=== PATIENT | female | born 1945 | race Caucasian/White ===

== ENCOUNTER 2016-08-21 06:49 | Inpatient (IN) | payer MEDICARE, MEDICAID ==
[2016-08-21] VITALS (19 sets, daily range): BP systolic 122–224; BP diastolic 50–102; PULSE 80–132; RESP 16–37; O2SAT 88–100
[~2016-08-21] VITALS: Ht 152.4 cm; Wt 48.7 kg
--- NOTE | 2016-08-21 06:58 | ED.REPORT ---
HPI-Dyspnea / Wheezing Date of Service Aug 21, 2016 ED Provider: Dr. Duncan Pt is a 72 year old Singaporean speaking female with a hx of kidney problems on dialysis presenting to the ED via EMS complaining of SOB onset last night. Associated symptoms include vomiting throughout the night last night. Denies chest pain, cough, fever, or any other symptoms at this time. The pt's was driving her to the hospital when he pulled off the road several times and was stopped by law enforcement and EMS were called due to severe respiratory distress. Medics report SATs in the 80s, and that the pt was hypertensive and diaphoretic in the field. Pt was taken by ambulance for a checkup on Tuesday. Her last dialysis was on , and gets dialysis on Tuesdays and only. Her denies any previous history of heart attack or previous similar symptoms. Her reports that about 4 years ago she had cholelithiasis with surgery, and then an infection intermittent for 2 years which he reports affected her kidneys. A Singaporean portable representative personal service was used to communicate with the patient and her . Pt is on Bactrim and Flagyl but is not sure what for. Nursing Notes Stated Complaint: RESPIRATORY DISTRESS Chief Complaint: Respiratory distress Nursing Notes Reviewed: Yes Scheduled Amlodipine (Amlodipine) 10 Mg Tablet 10 MG PO DAILY Calcium Acetate (Calcium Acetate) 667 Mg Capsule 667 MG PO QID with food Carvedilol (Carvedilol) 25 Mg Tablet 25 MG PO DAILY Hydralazine (Hydralazine) 100 Mg Tablet 100 MG PO BIDWM Metronidazole (Metronidazole) 500 Mg Tablet 500 MG PO QID Olmesartan (Benicar) 40 Mg Tablet 40 MG PO DAILY Omeprazole (Omeprazole) 20 Mg Capsule.dr 20 MG PO DAILY Sulfamethoxazole/Trimeth 400-80 mg (Bactrim) 1 Each Tablet 1 TABLET PO BID Scheduled PRN Clonidine (Clonidine) 0.2 Mg Tablet 0.2 MG PO BID PRN PRN for BP >170/100 Tramadol (Tramadol) 50 Mg Tablet 50 MG PO Q8 PRN PRN For Pain General Time Seen by MD: 06:57 Chief Complaint Shortness of breath Hx Obtained From: Patient, EMS Arrived By: Ambulance Caused by: Spontaneous Sudden in Onset?: Yes Onset Occurred: Just prior to arrival Symptom Duration: Since onset Severity: Current: No pain currently Severity: Maximum: No pain Recent Healthcare: No recent hospitalization, Recent doctor visit Similar Sx Previous: No Past Medical History Past Medical History Kidney problems on dialysis Past Surgical History Cholelithiasis with surgery and following infection Smoking History Unknown if Ever Smoker Social History Other Social History: Ambulatory Status Independent Review of Systems Constitutional: Denies: Fever Respiratory: Reports: Shortness of breath, Wheezing, Denies: Non-productive cough Cardiovascular: Denies: Chest pain Complete sys rev & neg: except as marked. GI: Reports: Nausea, Vomiting Physical Exam Initial Vital Signs Vital Signs (First) Date Time Temp Pulse Resp B/P Pulse Ox O2 Delivery O2 Flow Rate FiO2 08/21/16 07:15 132 33 212/102 98 BiPAP 08/21/16 07:15 35.7 08/21/16 07:29 70 Initial VS: Reviewed Head / Eyes: Atraumatic, Normocephalic, PERRL ENT: Mucous membranes moist, Conjunctiva normal, No scleral icterus Abdomen / GI: Soft, Non-tender, No guarding, No rebound, No distention Extremities: Vascular intact, Neuro intact, No swelling, No tenderness Skin: Warm, Dry, No cyanosis Neurologic: Alert, Oriented, Nonfocal Psychiatric: Mood/affect normal, Behavior normal, Normal thought content General/Constitutional: Awake, Alert Sitting forward. Respiratory / Chest: Atraumatic Resp Distress / Stridor: Positive: Resp distress severe Bilateral crackles and wheezes. Cardiovascular: Heart rate NL, Regular rhythm, Heart sounds NL Interpretation & Diagnostics Lab Results Interpretation Result Diagram: 08/21/16 0727 08/21/16 0727 Test 08/21/16 07:27 White Blood Count 12.8th/mm3 (3.8-10.1) Red Blood Count 4.40mil/mm3 (3.90-5.20) Hemoglobin 11.9g/dL (12.0-15.6) Hematocrit 38.4% (35.0-46.0) Mean Corpuscular Volume 87.3fL (81-100) Mean Corpuscular Hemoglobin 27.0pg (27.0-35.0) Mean Corpuscular Hemoglobin Concent 31.0% (32.0-37.0) Red Cell Distribution Width 17.1% (12.3-15.4) Platelet Count 233bil/L (150-400) Neutrophils (%) (Auto) 71.8% (40-74) Lymphocytes (%) (Auto) 19.4% (14-46) Monocytes (%) (Auto) 7.3% (4-12) Eosinophils (%) (Auto) 0.5% (0-5) Basophils (%) (Auto) 0.6% (0-3) Prothrombin Time 12.2sec (8.1-12.5) Prothromb Time International Ratio 1.14ratio D-Dimer 1.68mg/L FEU (<0.50) Sodium Level 129mEq/L (134-144) Potassium Level 4.8mEq/L (3.5-5.2) Chloride Level 85mEq/L (97-108) Carbon Dioxide Level 24mmol/L (18-29) Blood Urea Nitrogen 30mg/dL (8-27) Creatinine 5.08mg/dL (0.57-1.00) Estimat Glomerular Filtration Rate 12mL/min (>59) Glucose Level 214mg/dL (60-99) Calcium Level 9.7mg/dL (8.5-10.1) Magnesium Level 2.1mg/dL (1.6-2.6) Total Bilirubin 0.4mg/dL (0.0-1.2) Aspartate Amino Transf (AST/SGOT) 44U/L (0-50) Alanine Aminotransferase (ALT/SGPT) 16U/L (0-32) Alkaline Phosphatase 70U/L (25-165) Troponin T 0.047ug/L (0.0-0.011) Pro-B-Type Natriuretic Peptide > 21967gp/mL (0-301) Total Protein 7.9g/dL (6.4-8.4) Albumin 3.8g/dL (3.4-5.0) Procalcitonin 0.41ng/mL (0.00-0.08) ECG Interpretation ECG Interpretation: Sinus tachycardia with a rate of 133. Q waves in v1-v4. No ST elevations. Time: 07:02 Interpreted by: ED physician X-Ray Chest Interpretation Chest Xray Interpretation: Signs consistent with pulmonary edema volume overload left pleural effusion View: Portable, 1 view Interpretation / Wet Read by: Wet read ED physician Re-Eval/Medical Decision Med Decision/Clinical Course 71-year-old female poor historian with limited medical history available, Singaporean speaking, presenting as Evita Cortes with shortness of breath since last night. Also with some nausea and vomiting. Patient is a dialysis patient in [place] on Tuesdays and . She does report going to hospital for unknown reason multiple times recently with no recent admissions. Comes in in severe respiratory distress. He was immediately placed on BiPAP and this improved her respiratory status stress significantly she was much more comfortable. Chest x-ray emergently showed severe volume overloaded and left pleural effusion. She is afebrile here. I consulted nephrology emergently and they requested transfer to the ICU for emergent dialysis. Did not have labs back at this time. He was notably hypertensive and tachycardic in the 130s. EKG with Q waves in V1 through V4. No STEMI. She denied chest pain. She was given an aspirin prior to getting history from representative personal service. She is severely hypertensive pending urgent dialysis. Discussed with ICU Dr. Foy who accepted admission pending labs and we decided to hold off on antibiotics pending labs given afebrile. Cannot rule out aspiration pneumonia. We will defer to ICU team. Re-Evaluation/Progress #1: Time of Eval: 07:03 Patient Status: Condition improved Re-Evaluation/Progress Note: Pt breathing improved with BiPAP. Re-Evaluation/Progress #2: Time of Eval: 07:07 Patient Status: Condition improved Re-Evaluation/Progress Note: Used the portable representative personal service to speak to the pt and her . Re-Evaluation/Progress #3: Time of Eval: 07:30 Patient Status: Condition improved Re-Evaluation/Progress Note: Discussed plan for admission. Pt understands and agrees with plan. Consultation #1: Referral / Consult Name: Joaquim Singh MD Consulted With: Nephrology Call Returned at: 07:08 Note: Admit the pt and dialyze for volume overload. Consultation #2: Referral / Consult Name: Yaya Foy MD Consulted With: Hospitalist Call Returned at: 07:23 Product Manufacturing Professional: Will see patient, Agrees with plan, Accepts admit Counseled Regarding: Diagnosis, Lab results, Need for follow-up, When/why to return to ED Discharge & Departure Impression: Primary Impression: Signs and symptoms of severe respiratory distress Additional Impressions: Dialysis patient Hypertensive emergency Disposition: ADMITTED TO HOSPITAL Discharge Condition All VS Reviewed: Yes Condition: Improved Crit Care Except Billable Proc Time Spent: 30-74 minutes (40 minutes) Services Performed: Patient management by me, Time spent at bedside, Reviewing test results, Reviewing imaging, Discussing patient care, Documentation in record, Time with fam/surrogate Scribe Attestation Portions of this note were transcribed by Ciarra Mitchell. I, Dr. Duncan personally performed the history, physical exam and medical decision-making; I reviewed and confirmed the accuracy of the information in the transcribed note. Signed by: Silver Armas, 08/21/2016 at 0744. Medhat Duncan MD Aug 21, 2016 06:58 CIARRA MITCHELL Aug 21, 2016 07:06
[2016-08-21] MEDS ORDERED: Albuterol-Ipratropium 3 mL Inhalation Solution NEB ONE (07:00)
[2016-08-21] MEDS ORDERED: Ondansetron 2 mg/mL 2 mL Inj IVPUSH PRN ×2 (07:30→07:35)
[2016-08-21] MEDS ORDERED: Alum-Mag Hydrox-Simeth 30 mL Suspension PO PRN ×2 (07:30→07:35)
[2016-08-21 07:32] LABS: BASOPHILS % (AUTO) 0.6 % (0-3); EOSINOPHILS % (AUTO) 0.5 % (0-5); MONOCYTES % (AUTO) 7.3 % (4-12); Mean Corpuscular Volume 87.3 fL (81-100); NEUTROPHILS % (AUTO) 71.8 % (40-74); Platelet Count 233 bil/L (150-400)
[2016-08-21] MEDS ORDERED: Polyethylene Glycol (PEG) 17 Gm Powder PO PRN (07:35)
[2016-08-21] MEDS ORDERED: Senna-Docusate 8.6-50 mg Tablet PO PRN (07:35)
[2016-08-21 07:50] LABS: D-Dimer 1.68 mg/L FEU (<0.50); INR 1.14 ratio
--- NOTE | 2016-08-21 08:01 | NUR ---
Arrival to CCU Patient escorted from ED to room 2011. Alert at time of arrival to unit. Non-Hungarian speaking, awaiting aircraft engine technician to assist with pt communication needs. ST per bus driver/monitor. Hypertensive. Tachypneic. BiPAP with 60% fi02. Sp02 >92%. Right upper abdominal pain/guarding noted. No s/s of chest discomfort. at bedside. Will continue to monitor.
[2016-08-21 08:26] LABS: Magnesium 2.1 mg/dL (1.6-2.6); TROPONIN T 0.047 ug/L (0.0-0.011)
[2016-08-21] MEDS: Sodium Chloride LOK Flush 10 mL Syringe IVFLUSH SCH ×3 (08:30→23:16)
--- NOTE | 2016-08-21 09:00 | NUR ---
Admit/med rec Per spouse, pt. being dialyzed , , Tuesday; at [facility]. Full code, discussed code status with Daughter, Rebeka. Rebeka stating that she will call all family members and discuss the possibility in status change; due to pt. progressively getting worse, and condition becoming chronic. She states that "I would like for the medical staff to talk to me directly concerning plan of care and status, Father does not understand the whole process." Med rec completed; med containers to be taken home by spouse.
[2016-08-21] MEDS ORDERED: TRAM50TA2 PO (09:41)
[2016-08-21] MEDS ORDERED: CALC667C9 PO (09:41)
[2016-08-21] MEDS ORDERED: METR500T19 PO (09:41)
[2016-08-21] MEDS ORDERED: CARV25TA2 PO (09:41)
[2016-08-21] MEDS ORDERED: AMLO10TA3 PO (09:41)
[2016-08-21] MEDS ORDERED: SULF-239 PO (09:41)
[2016-08-21] MEDS ORDERED: OMEP20CA11 PO (09:41)
[2016-08-21] MEDS ORDERED: OLME40TA3 PO (09:41)
[2016-08-21] MEDS ORDERED: HYDR100T27 PO (09:41)
[2016-08-21] MEDS ORDERED: CLON0.2T PO (09:41)
[2016-08-21] MEDS: Heparin 5,000 Unit/mL Inj SUBQ SCH ×2 (09:56→21:53)
--- NOTE | 2016-08-21 11:27 | DRSVH ---
PROCEDURE: X-RAY CHEST ONE VIEW, PORTABLE ([id number]) INDICATIONS: dyspnea TECHNIQUE: One view of the chest was acquired. COMPARISON: None. FINDINGS: Surgical changes and devices: None. Lungs and pleura: Evaluation of the right lung apex and medial left apex is limited due to patient's neck soft tissues as well as an external nonrebreather mask. There is a small left and likely small r ight pleural effusion. Diffuse pulmonary edema is present as well as patchy opacities in the lung ba ses and left basilar consolidation. Mediastinum: The mediastinal contours are partially obscured. Heart size likely within normal limits . Bones and chest wall: No suspicious bony lesions. Overlying soft tissues appear unremarkable. IMPRESSION: 1. Limited study demonstrates bilateral pleural effusions with pulmonary edema and bibasilar consoli dation which may reflect pneumonia or atelectasis. Dictated by: Minesh Carver M.D. on 08/21/2016 at 11:18 Approved by: Minesh Carver M.D. on 08/21/2016 at 11:20
--- NOTE | 2016-08-21 12:48 | NUR ---
Dialysis note 3.5 hr HD tx 4000ml net UF removed. 2 15 g needles to VANESSA fistula QB 300 See DTR for complete vitals trends. Pt on BIPAP/stable during tx/resting comfortably Sureseals/clamps X10 mins post tx
[2016-08-21] MEDS ORDERED: Heparin 5,000 Unit/mL Inj SUBQ ONE (13:15)
--- NOTE | 2016-08-21 13:28 | CONS ---
[address] [address] CONSULTATION REPORT PATIENT: AKASH WILKS : 1945 MR#: [id number] ADMIT: 08/21/2016 JOB ID: [id number] DATE OF SERVICE: 08/21/2016 NEPHROLOGY CONSULTATION: REQUESTING PHYSICIAN: Dr. Alexi Foy. REASON FOR CONSULTATION: Management of end-stage renal disease. CHIEF COMPLAINT: Shortness of breath. PRESENT ILLNESS: This is a 72-year-old Bulgarian speaking lady with significant past medical history of end-stage renal disease and hypertension who presented to the emergency department with a complaint of shortness of breath. The patient does not speak Vincentian. Her granddaughter is kind enough to be our case management assistant. The patient reported that she had abdominal pain and went to the emergency department at the [facility] on Tuesday, August 16. She was told that she had diverticulitis and was prescribed Flagyl and Bactrim. She was not hospitalized at that time. She stated that she has been drinking more water while taking her antibiotics. She came to the hospital this time with a complaint of sudden onset chest pressure and shortness of breath at 2 o'clock this morning. Her was driving her to the hospital. Her pulled off the road several times and eventually was stopped by the law enforcement. EMS was then called given her unstable respiratory condition. En route her pulse ox was in the 80s. Her initial vitals were 35.7, pulse 131, blood pressure of 224/97. Her pulse ox was 88% on non-rebreather and then switched to BiPAP. During my visit, she is on FiO2 50%, BiPAP with a pulse ox of 100%. I called hemodialysis nurse for a stat hemodialysis. During my visit, she is already on hemodialysis. We have set ultrafiltration for 4 L today. She reported that she had felt slightly better since the dialysis started. She reports no history of fever or chills. He is a little bit nauseated but no diarrhea, no vomiting. She is the patient of Dr. Clifford. She goes to dialysis unit at [facility]. She is being dialyzed every Tuesday, , Tuesday via AV fistula on the left arm. PAST MEDICAL HISTORY: 1. End-stage renal disease, on hemodialysis every Tuesday, , Tuesday. 2. Hypertension. 3. Renal osteodystrophy. SURGICAL HISTORY: 1. Status post cholecystectomy. 2. Status post appendectomy. 3. Status post AV fistula creation. SOCIAL HISTORY: She is . Denies current use of alcohol, tobacco or illicit drugs. ALLERGIES: REVIEW OF SYSTEMS: Fourteen point review of system was performed. PHYSICAL EXAMINATION: Vitals: Temperature 36.5, pulse 88, respiratory 20, blood pressure 122/61, after dialysis. O2 sat 100% on FiO2 50%, with BiPAP. General appearance: Awake, alert, oriented x3. In mild distress on BiPAP. Follows simple commands. HEENT: No pallor. No jaundice. Positive for JVD. No lymphadenopathy. No thyroid enlargement. Heart: Regular rate and rhythm. Normal S1, S2. No murmurs, rubs or gallops. Lungs: Equal breath sounds bilaterally. No wheezing. No rhonchi. Decreased breath sound at the bases. Abdomen: Soft, nontender, nondistended. No hepatosplenomegaly. No rebound. No guarding. No rigidity. Extremities: No significant edema on the lower extremities. Left AV fistula with good thrill and bruit. LABORATORY: Sodium 129, potassium 4.8, chloride 85, bicarbonate 24, BUN 30, creatinine 5.08. Hemoglobin 11.9, WBC 12.8, platelets 233. IMAGING: Chest x-ray showed bilateral pleural effusion and pulmonary edema pattern. ASSESSMENT: 1. Sudden onset shortness of breath secondary to pulmonary edema. 2. End-stage renal disease with fluid overload. 3. Hypertension, uncontrolled, likely volume related. 4. Renal osteodystrophy. 5. Recent history of diverticulitis. Per renal standpoint, today we are planning to perform dialysis 3.5 hours and remove 4 L total fluid. We will use 2 K bath today. We will repeat a chest x-ray in the morning and likely patient will receive another extra dialysis tomorrow for two hours and fluid removal probably 2 L. The rest of management as per primary team. I would recommend to resume her home antihypertensive medications. Thank you for allowing me to participate in the care of your patient. We will monitor along with you. JOSÉ MIGUEL
--- NOTE | 2016-08-21 14:05 | NUR ---
STATUS Patient resting comfortably. Family interpreting for pt. Intermittent complaints right upper abdominal pain, denies need for pain medication at this time. No reported nausea. SR per sales and leasing consultant. Hypertensive, home antihypertensive medications reordered and administered as scheduled. Denies chest discomfort. Respirations unlabored and even. No reported SOA. Sp02 >92% on 3L per oxymask. Small formed stool x 1. Family remains at bedside. Will continue to monitor.
--- NOTE | 2016-08-21 17:07 | PCM.HPMED ---
Subjective Date of Service Aug 21, 2016 Primary Provider: Admitting Physician: Yaya Foy MD Primary Care Physician: Jessica Attending Physician: Joaquim Singh MD Chief Complaint: Difficulty breathing History of Present Illness: Belle Kevin is a 72-year-old Italian speaking woman with past medical history significant for end-stage renal disease on hemodialysis Tuesday and Tuesday, hypertension, diabetes, anemia, hyperlipidemia, hypothyroidism presented to [facility] emergency department due to severe shortness of breath and respiratory distress. The patient does not speak any Greek and our conversation was translated by a Italian speaking RN. An attempt was made to use a telephone transmitter however no Italian brick and tile making machine operator was available. The patient lives in in the [facility] and was seen at the [place] emergency department at [facility] on Tuesday for diverticulitis and was grabbed Bactrim and metronidazole. The patient was also seen in the emergency department 4 months prior at that time a CT was performed which revealed ascites, pericardial and bilateral pulmonary effusions. Per patient's family report, the patient has been drinking a lot more water while taking her antibiotics. This morning around 2 AM the patient woke up with severe shortness of breath and chest pressure. Her was driving her to the hospital and was stopped by law enforcement due to frequent stops at the site of the road. EMS was subsequently called and she was brought to the nearest hospital. She denies any overt chest pain or pressure at this time. She notes some shortness of breath but this has improved with BiPAP use. She denies any nausea, vomiting, diarrhea. She does note mild abdominal pain which is significantly improved from Tuesday. Per the patient's the patient has not missed any dialysis appointments and she is normally dialyzed 1.2 L at [facility]. She denies any cough, fevers, chills, changes in mentation. She has noticed that she has lower extremity edema that has worsened over the last several days. There is no history of heart failure. Her vital signs in the emergency department were significant for tachycardia, tachypnea, elevated blood pressure and hypoxia. She was given 1 full dose of aspirin. Dr. Serrano the nephrology service was consulted by the ED physician for emergent dialysis. Review of Systems: A comprehensive review systems was performed and is negative except as noted above in history of present illness. Allergies Coded Allergies: acetaminophen (Verified Allergy, Unknown, 08/21/16) hydrocodone (Verified Allergy, Unknown, 08/21/16) Home Medications [place] 10 mg once a day Calcitrol 0.2 mcg once a day Calcium carbonate Calcium acetate Carvedilol 12.5 mg twice a day Vitamin D3 Clonidine 0.1 mg every day Furosemide 20 mg every day Hydralazine 25 mg twice a day Start 25 mg once a day next line lovastatin 40 mg once a day CellCept 2 mg every 48 hours Benicar 40 mg every day Prilosec 20 mg twice a day Prednisone 10 mg once a day Januvia 25 mg every day Tramadol 50 mg every 8 hours as needed for pain New Medications: Flagyl and Bactrim PMH Diabetes High blood pressure Anemia Hyperlipidemia Hypothyroidism ESRD on hemodialysis Tuesday Surgical History Cholecystectomy Appendectomy AV fistula Family History Positive for hypertension Social History Hx Alcohol Use: No Hx Substance Use: No Hx Tobacco Use: No Exam Vital Signs Vital Sign - Last Date Time Temp Pulse Resp B/P Pulse Ox O2 Delivery O2 Flow Rate FiO2 08/21/16 15:45 76 23 142/50 94 08/21/16 15:10 Supplement Oxygen 08/21/16 15:09 36.5 3.00 08/21/16 11:10 50 Exam General: Alert, Oriented X3, Cooperative, in mild acute distress with BiPAP mask on face Head: Normocephalic, atraumatic. External ears normal. Eyes: PERRLA, EOMI. Anicteric sclerae. Mouth: Mouth normal, Mucous membranes moist/pink, poor dentition Neck: Neck supple with full range of motion. JVD noted Chest& Lungs: Clear to auscultation bilaterally with no crackles, wheezes, or rhonchi. Cardiovascular: Regular rate and rhythm, Normal S1, Normal S2, No murmurs/rubs/ gallops Abdomen: Non-tender, Non-distended, No masses, Normoactive bowel tones, Soft Musculoskeletal: Normal range of motion Extremities: No cyanosis/clubbing. Mild bilateral pitting edema of the ankles. Neurological: Normal speech. Cranial nerves II through XII intact bilaterally. Moves all extremities spontaneously with equal strength. Lab and Diagnostics Result Diagram: 08/21/1672608/21/16726 X-Rays, CTs and MRIs X-RAY CHEST ONE VIEW, PORTABLE IMPRESSION: 1. Limited study demonstrates bilateral pleural effusions with pulmonary edema and bibasilar consolidation which may reflect pneumonia or atelectasis. Dictated by: Minesh Carver M.D. on 08/21/2016 at 11:18 Assessment & Plan Belle Kevin is a 72-year-old Italian speaking woman with past medical history significant for end-stage renal disease on hemodialysis Tuesday and Tuesday, hypertension, diabetes, anemia, hyperlipidemia, hypothyroidism presented to [facility] emergency department due to severe shortness of breath and respiratory distress. Acute hypoxemic respiratory failure secondary to pulmonary edema secondary to fluid overload -Nephrology method consultant, appreciate time and expertise -Emergent hemodialysis with plan to take 4 mL off Elevated troponin of uncertain significance, likely secondary to heart strain from pulmonary edema -Unclear patient has any history of CHF -Echo ordered and pending. Personal review of echo reveals pericardial effusion. Await official report. -She not complaining of chest pain postdialysis and a respiratory status has improved and she was able to be taken off BiPAP. Bilateral pleural effusions, likely pericardial effusion and history of ascites -May be due to fluid overload in conjunction with heart failure and inadequate dialysis -However differential should include a malignant process as the patient has been losing weight progressively over the last several months -May reconsider doing a panscan scan CT Diverticulosis, treated -She completed 5 days of metronidazole and Bactrim therapy. -At this time we will not continue any further antibiotics as discussed seems to be an unlikely cause of her decline. ESRD on hemodialysis Tuesday -Dr. Serrano consulted, appreciate time and expertise. -Continue outpatient medications. -The patient's brought in some medications from home, however the patient's medication list from [facility] indicates that she is on CellCept and Prednisone. -Will need to clarify with the patient's pharmacy Diabetes mellitus type 2 -Hold oral agent. We will consider initiating Lantus glucose control. Hypertension Chronic normocytic anemia likely secondary to ESRD -Continue to monitor Hyperlipidemia -Continue statin Hypothyroidism CODE STATUS: Full code Admitted under inpatient status with anticipated length of stay greater than 2 midnights due to severity of symptoms, complex treatment, and possibility for deterioration. VTE Prophylaxis: Sub-Q Heparin (Unfractionated) Resuscitation Status: CPR: Attempt Resuscitation Time spent 70 minutes spent in patient assessment, interviewing patient and family with medical technician, review of data with method consultant. Attending Statement I interviewed and examined the patient at time of admission today. I agree with the assessment and plan as stated above. Laila Perla DO Aug 21, 2016 16:19 Yaya Foy MD Aug 21, 2016 20:35
--- NOTE | 2016-08-21 18:14 | DRSVH ---
[facility] [address] [place] [address] Echocardiogram Report Name: AKASH WILKS Study Date: 08/21/2016 Height: 61 in Hospital Exam Location: [facility] Weight: 11 8 lb Gender: Female BSA: 1.5 m2 : 1945 Age: 71 yrs BP: 156/57 mmHg Reason For Study: Congestive Heart Failure Ordering Physician: HOSPITALIST [facility] Performed By: Sherri Stanford Referring Physician: Armando Herist Interpretation Summary Normal sinus rhythm. Normal LV size, mild concentric LVH. There is apical hypokinesis; otherwise mild global hypokinesis. EF is 35-40%. No significant valvular abnormalities. There is moderate circumferential pericardial effusion with no evidence of tamponade. There are large bilateral pleural effusions. No prior study available for comparison. Procedure: A two-dimensional transthoracic echocardiogram with color flow and Doppler was performed. The study quality was technically adequate. There is no prior echocardiogram noted for this patient. The patient was in normal sinus rhythm during the exam. The heart rate ranged between 87-97 bpm during the study. Left Ventricle: There is mild concentric left ventricular hypertrophy. The left ventricle is normal in size. There is no thrombus. A false chord is noted (normal variant). The ejection fraction is estimated to be 35-40%. apical akinesis; otherwise mild global hypokinesis. Assessment of diastolic parameters indicates a relaxation abnormality of the left ventricle, consistent with normal filling pressures. Right Ventricle: The right ventricle is normal in size and function. Atria: The left atrium is mildly dilated. Right atrial size is normal. There is no Doppler evidence for an interatrial shunt. Mitral Valve: The mitral valve leaflets are slightly calcified. There is mild mitral regurgitation. Aortic Valve: The aortic valve opens well. The aortic valve is mildly calcified. No aortic regurgitation is present. Tricuspid Valve: The tricuspid valve is normal in structure and function. There is mild tricuspid regurgitation. The right ventricular systolic pressure is estimated at 33 mmHg assuming a right atrial pressure of 8 mm Hg. Systolic flow reversal in hepatic veins. Pulmonic Valve: The pulmonic valve is not well visualized. Great Vessels: The aortic root is not well visualized but is probably normal size. The ascending aorta could not be visualized. The IVC is of normal diameter and collapses less than 50% with a sniff. This suggests a right atrial pressure of 8 mm Hg. Pericardium/ Pleura There is a moderate pericardial effusion that is circumferential. There are no echocardiographic or Doppler indications for cardiac tamponade. There are large-sized bilateral pleural effusions noted. MMode/2D Measurements & Calculations LVIDd: 4.5 cm RA long axis: 3.8 cm LVOT diam LVIDs: 3.0 cm LA A2 area: 20.0 cm : 1.9 cm FS: 33.4 % LA A4 area: 17.0 cm RA area: 12.5 cm EPSS: 0.66 cm LA length (vol): 4.7 cm RA vol: 35.2 ml IVSd: 1.1 cm LA vol: 61.0 ml RA : 23.3 ml/m2 LVPWd: 1.2 cm LA vol index: 40.4 ml/m IVC diam: 2.0 cm EDV(MOD-sp2) LV luna. diameter/BSA LV sys. diameter/BSA RVD1 (basal) (cm/m^2): 3.0 (cm/m^2): 2.0 : 3.5 cm ESV(MOD-sp2) EF(MOD-sp2) TAPSE: 1.7 cm Doppler Measurements & Calculations Ao V2 max MV E max kody MV E/A: 0.55 TR max kody : 143.1 cm/sec : 47.8 cm/sec Med Peak E' Kody : 249.5 cm/sec Ao max PG MV A max kody TR max PG : 8.2 mmHg : 87.6 cm/sec E/E' med: 16.8 : 24.9 mmHg Ao mean PG MV P1/2t: 46.0 msec Lat Peak E' Kody PA V2 max : 78.7 cm/sec LVOT Max Kody E/E' lat: 8.3 PA mean PG : 76.6 cm/sec E/e' average PA Accel Time RUBY(I,D): 1.6 cm : 0.12 sec sev ratio MV dec time MV P1/2t max kody Ao V2 mean LV V1 max PG : 0.15 sec : 88.1 cm/sec MVA(P1/2t): 4.8 cm2 Ao V2 VTI: 25.5 cm LV V1 VTI RUBY(V,D): 1.6 cm2 : 13.6 cm PA V2 mean RUBY indexed to BSA : 51.7 cm/sec (cm^2/m^2): 1.1 Reading Physician:06:13 PM
--- NOTE | 2016-08-21 22:37 | NUR ---
PAIN/BP Pt c/o some RUQ pain, but did not need pain medication. Pt's BP 166/64 HR 84, no PRN Clonidine given @ this time. Pt on 5L oxy-mask sating 94%, no other complaints @ this time, resting with in room.
[2016-08-22] VITALS (11 sets, daily range): BP systolic 121–171; BP diastolic 53–76; PULSE 66–105; RESP 16–23; O2SAT 94–97
[2016-08-22 02:46] LABS: BASOPHILS % (AUTO) 0.6 % (0-3); EOSINOPHILS % (AUTO) 0.9 % (0-5); MONOCYTES % (AUTO) 8.6 % (4-12); Mean Corpuscular Volume 86.1 fL (81-100); NEUTROPHILS % (AUTO) 79.9 % (40-74); Platelet Count 196 bil/L (150-400)
[2016-08-22 03:41] LABS: Phosphorus 4.6 mg/dL (2.5-4.9)
[2016-08-22] MEDS: Pantoprazole 20 mg ER24 Tablet PO SCH (05:45)
--- NOTE | 2016-08-22 09:36 | DRSVH ---
PROCEDURE: X-RAY CHEST ONE VIEW, PORTABLE ([id number]) INDICATIONS: PNA vs CHF TECHNIQUE: One view of the chest was acquired. COMPARISON: [facility], CR, XR CHEST 1VW (PORTABLE), 08/21/2016, 6:53. FINDINGS: Surgical changes and devices: None. Lungs and pleura: No definite pleural effusions or pneumothorax. Lungs are abnormal but with improv ed aeration from the prior study. There is asymmetric radiodensity at the right apex in an area chris uring approximately 2 cm in diameter, potentially a mass lesion. There is a newly found ovoid radiod ensity beneath the minor fissure on the right (which is elevated) measuring up to 3 x 4 cm. There is dense opacification of the retrocardiac left lower lobe.. Mediastinum: Mediastinal contours appear normal. Heart size is enlarged. Bones and chest wall: No suspicious bony lesions. Overlying soft tissues appear unremarkable. IMPRESSION: Multiple areas of abnormality present as discussed above bilaterally, potentially a manif estation of infection or neoplasm. Followup assessment by two-view chest when symptoms have improved would be recommended. Improved pulmonary edema pattern. Both pneumonia and neoplasm remaining poss ible explanations for the abnormalities noted above. Dictated by: Freddy Zhang M.D. on 08/22/2016 at 9:17 Approved by: Freddy Zhang M.D. on 08/22/2016 at 9:34
[2016-08-22] MEDS: Sodium Chloride LOK Flush 10 mL Syringe IVFLUSH SCH ×3 (10:14→23:52)
[2016-08-22] MEDS: Heparin 5,000 Unit/mL Inj SUBQ SCH ×2 (10:14→20:39)
--- NOTE | 2016-08-22 12:52 | PCM.PNNEPH ---
Subjective Date of Service Aug 22, 2016 Subjective c/o RUQ pain and early satiety. She has no CP. SOB has improved after HD yesterday. Exam Vital Signs Vital Sign - Last Date Time Temp Pulse Resp B/P Pulse Ox O2 Delivery O2 Flow Rate FiO2 08/22/16 11:49 36.6 74 20 138/53 94 OxyMask 5.00 08/21/16 11:10 50 Intake and Output 08/21/16 08/21/16 08/22/16 Cumulative From/Thru 15:00 23:00 07:00 08/21/16 07:15 - 08/22/16 06:31 Intake Total 300 ml 0 ml 300 ml Output Total 4000 ml 4000 ml Balance -4000 ml 300 ml 0 ml -3700 ml Intake Oral 300 ml 300 ml IV Total 0 ml 0 ml Output Ultrafiltrate 4000 ml 4000 ml # Voids 1 1 # Bowel Movements 1 1 Exam General appearance: Awake, alert, oriented x3. On face mask HEENT: No pallor. No jaundice. Positive for JVD. No lymphadenopathy. No thyroid enlargement. Heart: Regular rate and rhythm. Normal S1, S2. No murmurs, rubs or gallops. Lungs: Equal breath sounds bilaterally. No wheezing. No rhonchi. Decreased breath sound at the bases. Abdomen: Soft, nontender, nondistended. No hepatosplenomegaly. No rebound. No guarding. No rigidity. Extremities: No significant edema on the lower extremities. Left AV fistula with good thrill and bruit. Lab and Diagnostics Result Diagram: 08/22/1621408/22/16214 X-Rays, CTs and MRIs X-RAY CHEST ONE VIEW, PORTABLE IMPRESSION: 1. Limited study demonstrates bilateral pleural effusions with pulmonary edema and bibasilar consolidation which may reflect pneumonia or atelectasis. Dictated by: Minesh Carver M.D. on 08/21/2016 at 11:18 Plan Impression ASSESSMENT: 1. Sudden onset shortness of breath secondary to pulmonary edema. improving. 2. End-stage renal disease with fluid overload. 3. Hypertension, uncontrolled, likely volume related. 4. Renal osteodystrophy. 5. Recent history of diverticulitis. 6. Lung mass. Plan: Extra HD today, only for UF 2L. Next HD on Tuesday. Joaquim Singh MD Aug 22, 2016 12:52
[2016-08-22] MEDS ORDERED: [UNRECOGNIZED DRUG - OTHER] PO PRN (15:10)
--- NOTE | 2016-08-22 15:29 | PCM.PNMED ---
Subjective Date of Service Aug 22, 2016 Subjective 72-year-old Swedish speaking woman with past medical history significant for end-stage renal disease on hemodialysis Tuesday and Tuesday, hypertension, diabetes, anemia, hyperlipidemia, hypothyroidism presented to [facility] emergency department due to severe shortness of breath and respiratory distress, associated with recent diagnosis of colitis. Translation by family today. She reports breathing much better today. Continues to complain of crampy abdominal pain, mostly right upper quadrant but she specifically states that it moves around. Mild nausea. No diarrhea. Exam Vital Signs Vital Sign - Last Date Time Temp Pulse Resp B/P Pulse Ox O2 Delivery O2 Flow Rate FiO2 08/22/16 11:49 36.6 74 20 138/53 94 OxyMask 5.00 08/21/16 11:10 50 Intake and Output 08/21/16 08/21/16 08/22/16 Cumulative From/Thru 15:00 23:00 07:00 08/21/16 07:15 - 08/22/16 06:31 Intake Total 300 ml 0 ml 300 ml Output Total 4000 ml 4000 ml Balance -4000 ml 300 ml 0 ml -3700 ml Intake Oral 300 ml 300 ml IV Total 0 ml 0 ml Output Ultrafiltrate 4000 ml 4000 ml # Voids 1 1 # Bowel Movements 1 1 Exam General: Elderly woman, approximately mass, no acute distress HEENT: sclerae anicteric, oral mucosa moist Neck: JVD approximately 4-5 cm Chest: Basilar crackles, clear to auscultation above Cardiac: S1S2, S4, no murmur Abdomen: BS present, non-tender to palpation, no mass appreciated. No guarding or rebound. Extremities: No edema Neuro: Seems alert and appropriate, cranial nerves symmetric, motor strength and coordination anormal IVs and Medications Medications Reviewed: Medications were reviewed in detail Lab and Diagnostics Result Diagram: 08/22/1621408/22/16214 X-Rays, CTs and MRIs X-RAY CHEST ONE VIEW, PORTABLE IMPRESSION: 1. Limited study demonstrates bilateral pleural effusions with pulmonary edema and bibasilar consolidation which may reflect pneumonia or atelectasis. Dictated by: Minesh Carver M.D. on 08/21/2016 at 11:18 PROCEDURE: X-RAY CHEST ONE VIEW, PORTABLE ([id number]) IMPRESSION: Multiple areas of abnormality present as discussed above bilaterally , potentially a manifestation of infection or neoplasm. Followup assessment by two-view chest when symptoms have improved would be recommended. Improved pulmonary edema pattern. Both pneumonia and neoplasm remaining possible explanations for the abnormalities noted above. Dictated by: Freddy Zhang M.D. on 08/22/2016 at 9:17 . Assessment & Plan Belle Kevin is a 72-year-old Swedish speaking woman with past medical history significant for end-stage renal disease on hemodialysis Tuesday and Tuesday, hypertension, diabetes, anemia, hyperlipidemia, hypothyroidism presented to [facility] emergency department due to severe shortness of breath and respiratory distress. Acute hypoxemic respiratory failure secondary to pulmonary edema secondary to fluid overload. Emergent hemodialysis on 08/21. Moderate symptomatic improvement. -Planning repeat dialysis while inpatient; further volume reduction Abdominal pain, present on admission. Mostly localized RUQ but migratory and crampy in nature. She underwent CT scan at [facility] on 08/16 with borderline call of right ascending colon inflammation. She has no gallbladder. He was afebrile without diarrhea. Differential diagnosis is chronic mesenteric ischemia, possible diverticular disease, possible referred pain from passive congestion, - Supportive care - Maintain good bowel regimen with scheduled psyllium and other laxatives as needed - elixir as antispasmodic when necessary - Tramadol if needed, but prefer to limit opioid - contrast CT if febrile or rising white count Diverticulosis versus colitis, treated 5 days of metronidazole and Bactrim therapy with no change in symptoms. No associated diarrhea, leukocytosis or fever. Doubt this is acute diverticulitis -At this time we will not continue any further antibiotics as discussed seems to be an unlikely cause of her decline. Elevated troponin of uncertain significance, likely secondary to heart strain from pulmonary edema. Likely secondary to cardiac strain from fluid overload. Echo demonstrates effusion but no tamponade and no focal akinesis. No other clinical evidence to suggest active coronary disease - no further workup for CAD at this time Bilateral pleural effusions, likely pericardial effusion and history of ascites -May be due to fluid overload in conjunction with heart failure and inadequate dialysis -However differential should include a malignant process as the patient has been losing weight progressively over the last several months - Plan follow-up chest CT or two-view x-rays ESRD on hemodialysis Tuesday -Dr. Serrano consulted, appreciate time and expertise. -Continue outpatient medications. -The patient's brought in some medications from home, however the patient's medication list from [place] indicates that she is on CellCept and Prednisone. -Will need to clarify with the patient's pharmacy Diabetes mellitus type 2 -Hold oral agent. - Initiate insulin if BG greater than 180 Hypertension - Continue multiple medications Chronic normocytic anemia likely secondary to ESRD -Continue to monitor Hyperlipidemia -Continue statin Hypothyroidism CODE STATUS: Full code Admitted under inpatient status with anticipated length of stay greater than 2 midnights due to severity of symptoms, complex treatment, and possibility for deterioration. Pain Evaluation: Pain not Controlled VTE Prophylaxis: Sub-Q Heparin (Unfractionated) Resuscitation Status: CPR: Attempt Resuscitation Time spent 35 minutes Yaya Foy MD Aug 22, 2016 15:29
--- NOTE | 2016-08-22 16:41 | NUR ---
Dialysis note: 2 hr UF only tx Left UA fistula x 2- 15g needles without difficulty On 4L O2 via oxymask Net UF 2000 Stable throughout tx sites secured with SS, clamps x 7 min, gauze Please see DTR for complete record of VS Report given to primary RNAlexandra
--- NOTE | 2016-08-22 18:40 | NUR ---
Pain/BP Pt c/o upper quadrant pain, FELDT score 3. Gave tramadol with good effect. Pt's BP hypertensive this AM, improved with AM meds as well as dialysis. Pt's family at bedside throughout shift. Able to move independently in bed. Eating sporadically, BG 112.
[2016-08-23] VITALS (8 sets, daily range): BP systolic 123–168; BP diastolic 51–63; PULSE 67–74; RESP 16–18; O2SAT 94–98
--- NOTE | 2016-08-23 02:45 | NUR ---
activity Pt remained in bed for the shift, alert and oriented x 3, sat up on side of bed. NO complaints of pain or discomfort, except when she coughs or breathes deep then her RUQ aches. Will monitor.
[2016-08-23 03:21] LABS: Mean Corpuscular Hemoglobin 26.7 pg (27.0-35.0); Mean Corpuscular Volume 86.6 fL (81-100)
--- NOTE | 2016-08-23 05:23 | NUR ---
Lab value 0400 lab called with creatine critical value of 6.10, FYI night hospitalist with information at 0515. Will monitor.
[2016-08-23] MEDS: Pantoprazole 20 mg ER24 Tablet PO SCH (06:34)
[2016-08-23] MEDS: Heparin 5,000 Unit/mL Inj SUBQ SCH ×2 (08:18→20:53)
[2016-08-23] MEDS: Sodium Chloride LOK Flush 10 mL Syringe IVFLUSH SCH ×3 (08:23→20:53)
--- NOTE | 2016-08-23 11:54 | PCM.PNNEPH ---
Subjective Date of Service Aug 23, 2016 Subjective Denies F/C/N/VCP/SOB. (+) RUQ discomfort. HD x 2 consecutive days. Exam Vital Signs Vital Sign - Last Date Time Temp Pulse Resp B/P Pulse Ox O2 Delivery O2 Flow Rate FiO2 08/23/16 10:39 71 08/23/16 08:09 Supplement Oxygen 08/23/16 08:09 37.0 16 168/62 97 5.00 08/21/16 11:10 50 Intake and Output 08/22/16 08/22/16 08/23/16 Cumulative From/Thru 15:00 23:00 07:00 08/21/16 07:15 - 08/23/16 06:15 Intake Total 200 ml 500 ml Output Total 2000 ml 50 ml 6050 ml Balance -2000 ml 150 ml -5550 ml Intake Oral 200 ml 500 ml IV Total 0 ml Output Urine Total 50 ml 50 ml Ultrafiltrate 2000 ml 6000 ml # Voids 1 # Bowel Movements 1 Exam General appearance: Awake, alert, oriented x3. On face mask HEENT: No pallor. No jaundice. Positive for JVD. No lymphadenopathy. No thyroid enlargement. Heart: Regular rate and rhythm. Normal S1, S2. No murmurs, rubs or gallops. Lungs: Equal breath sounds bilaterally. No wheezing. No rhonchi. Decreased breath sound at the bases. Abdomen: Soft, nontender, nondistended. No hepatosplenomegaly. No rebound. No guarding. No rigidity. Extremities: No significant edema on the lower extremities. Left AV fistula with good thrill and bruit. Lab and Diagnostics Result Diagram: 08/23/16 0250 08/23/16 0250 X-Rays, CTs and MRIs X-RAY CHEST ONE VIEW, PORTABLE IMPRESSION: 1. Limited study demonstrates bilateral pleural effusions with pulmonary edema and bibasilar consolidation which may reflect pneumonia or atelectasis. Dictated by: Minesh Carver M.D. on 08/21/2016 at 11:18 PROCEDURE: X-RAY CHEST ONE VIEW, PORTABLE ([id number]) IMPRESSION: Multiple areas of abnormality present as discussed above bilaterally , potentially a manifestation of infection or neoplasm. Followup assessment by two-view chest when symptoms have improved would be recommended. Improved pulmonary edema pattern. Both pneumonia and neoplasm remaining possible explanations for the abnormalities noted above. Dictated by: Freddy Zhang M.D. on 08/22/2016 at 9:17 . Plan Impression 1. End-stage renal disease with fluid overload. 2. Hypertension, BP improved. 3. Renal osteodystrophy. 4. Lung mass per xray. 5. Bilateral pleural effusion and pericardial effusion, malignancy need to be ruled out. 6. HErEF, EF 35-40% 7. Recent h/o diverticulitis. Plan: Next HD on Tuesday. Rec thoracocentesis. CT chest with contrast. Joaquim Singh MD Aug 23, 2016 11:53
--- NOTE | 2016-08-23 16:09 | NUR ---
Social Work: Initial Assessment D: EMR reviewed. Pt is a 71 y/o female admitted for respiratory distress per H&P. SW met with pt at bedside to conduct initial assessment. Pt was alert and oriented x3. Pt's primary language is Tongan. SW conducted assessment using manual lathe machinist stick. Pt's insurance is Medicare and PCP is Jasiel Muse MD in [place]. Pt declined DPOA/advanced directive ppw. Pt gave verbal consent to contact son, Toñito (Urdu speaking) [phone] for discharge planning. Pt does not have LTC insurance or VA benefits. Pt has no hx at a SNF or . Pt is independent with ADLs. Pt does not own or use any DME. Pt does not drive, relies on spouse for transport. Pt lives in an apartment with elevator access in [place] with her spouse. Pt does not have to use stair to enter apartment. Pt stated her spouse or children will provide transport home when pt is medically stable. SW does not anticipate any discharge needs but will continue to follow and await MD orders if needs arise. A: Pt requested SW contact her son Toñito ([phone]) for any further information. P: Pt stated her spouse or children will provide transport home when pt is medically stable. SW does not anticipate any discharge needs but will continue to follow and await MD orders if needs arise. LEONARDO Jj Addendum: 08/23/16 at 1615 by THUY SEXTON SS Amended: Links added.
--- NOTE | 2016-08-23 16:41 | PCM.PNMED ---
Subjective Date of Service Aug 23, 2016 Subjective Belle Kevin is a 72-year-old Citizen Of [place] speaking woman with past medical history significant for end-stage renal disease on hemodialysis Tuesday and Tuesday, hypertension, diabetes, anemia, hyperlipidemia, hypothyroidism presented to [facility] emergency department due to severe shortness of breath and respiratory distress. Overnight: No acute events Today: The patient states that her breathing is improved but she does have some abdominal pain that resolves with burping. She denies any chest pressure, cough , fevers or chills. The remainder of ROS is negative except as noted above. Exam Vital Signs Vital Sign - Last Date Time Temp Pulse Resp B/P Pulse Ox O2 Delivery O2 Flow Rate FiO2 08/23/16 10:39 71 08/23/16 08:09 Supplement Oxygen 08/23/16 08:09 37.0 16 168/62 97 5.00 08/21/16 11:10 50 Intake and Output 08/22/16 08/22/16 08/23/16 Cumulative From/Thru 15:00 23:00 07:00 08/21/16 07:15 - 08/23/16 06:15 Intake Total 200 ml 500 ml Output Total 2000 ml 50 ml 6050 ml Balance -2000 ml 150 ml -5550 ml Intake Oral 200 ml 500 ml IV Total 0 ml Output Urine Total 50 ml 50 ml Ultrafiltrate 2000 ml 6000 ml # Voids 1 # Bowel Movements 1 Exam General: Alert, Oriented X3, Cooperative, in mild acute distress with nasal canula on face. Head: Normocephalic, atraumatic. External ears normal. Eyes: PERRLA, EOMI. Anicteric sclerae. Mouth: Mouth normal, Mucous membranes moist/pink, poor dentition Neck: Neck supple with full range of motion. no JVD noted Chest& Lungs: Clear to auscultation bilaterally with no crackles, wheezes, or rhonchi. Cardiovascular: Regular rate and rhythm, Normal S1, Normal S2, soft systolic murmur noted. Abdomen: Non-tender, Non-distended, No masses, Normoactive bowel tones, Soft Musculoskeletal: Normal range of motion Extremities: No cyanosis/clubbing. Mild bilateral pitting edema of the ankles. Neurological: Normal speech. Cranial nerves II through XII intact bilaterally. Moves all extremities spontaneously with equal strength. IVs and Medications Medications Reviewed: Medications were reviewed in detail Lab and Diagnostics Result Diagram: 08/23/16 0250 08/23/16 0250 X-Rays, CTs and MRIs X-RAY CHEST ONE VIEW, PORTABLE IMPRESSION: 1. Limited study demonstrates bilateral pleural effusions with pulmonary edema and bibasilar consolidation which may reflect pneumonia or atelectasis. Dictated by: Minesh Carver M.D. on 08/21/2016 at 11:18 X-RAY CHEST ONE VIEW, PORTABLE IMPRESSION: Multiple areas of abnormality present as discussed above bilaterally , potentially a manifestation of infection or neoplasm. Followup assessment by two-view chest when symptoms have improved would be recommended. Improved pulmonary edema pattern. Both pneumonia and neoplasm remaining possible explanations for the abnormalities noted above. Dictated by: Freddy Zhang M.D. on 08/22/2016 at 9:17 . Assessment & Plan Belle Kevin is a 72-year-old Citizen Of [place] speaking woman with past medical history significant for end-stage renal disease on hemodialysis Tuesday and Tuesday, hypertension, diabetes, anemia, hyperlipidemia, hypothyroidism presented to [facility] emergency department due to severe shortness of breath and respiratory distress. Acute hypoxemic respiratory failure secondary to pulmonary edema secondary to fluid overload in the setting of ESRD. Emergent hemodialysis on 08/21. Moderate symptomatic improvement. -Planning repeat dialysis while inpatient; further volume reduction Abdominal pain, present on admission. Mostly localized RUQ but migratory and crampy in nature. She underwent CT scan at [facility] on 08/16 with borderline call of right ascending colon inflammation. She has no gallbladder. He was afebrile without diarrhea. Differential diagnosis is chronic mesenteric ischemia, possible diverticular disease - Supportive care - Maintain good bowel regimen with scheduled psyllium and other laxatives as needed - elixir as antispasmodic when necessary - Tramadol if needed, but prefer to limit opioid - contrast CT if febrile or rising white count Diverticulosis versus colitis, treated 5 days of metronidazole and Bactrim therapy with no change in symptoms. No associated diarrhea, leukocytosis or fever. Doubt this is acute diverticulitis -At this time we will not continue any further antibiotics as discussed seems to be an unlikely cause of her decline. Elevated troponin of uncertain significance, likely secondary to heart strain from pulmonary edema. Likely secondary to cardiac strain from fluid overload. Echo demonstrates effusion but no tamponade and no focal akinesis. No other clinical evidence to suggest active coronary disease - no further workup for CAD at this time Lung mass with bilateral pleural effusions, pericardial effusion and history of ascites -Fluid May be due to fluid overload in conjunction with heart failure and inadequate dialysis -However differential should include a malignant process as the patient has been losing weight progressively over the last several months -Lung mass was previously seen in 2012, may be due to scarring. Discussed with Dr. Serrano plan to repeat CT with contrast to evaluate lymph nodes. ESRD on hemodialysis Tuesday -Dr. Serrano consulted, appreciate time and expertise. -Continue outpatient medications. -The patient's brought in some medications from home, however the patient's medication list from [facility] indicates that she is on CellCept and Prednisone. -Will need to clarify with the patient's pharmacy Diabetes mellitus type 2 -Hold oral agent. -Initiate insulin if BG greater than 180 Hypertension - Continue multiple medications Chronic normocytic anemia likely secondary to ESRD -Continue to monitor Hyperlipidemia -Continue statin Hypothyroidism CODE STATUS: Full code Disposition: Anticipate patient will be in the hospital for 1-2 more days. VTE Prophylaxis: Sub-Q Heparin (Unfractionated) Resuscitation Status: CPR: Attempt Resuscitation Attending Statement Patient seen and examined with house staff. Agree with all attached documentation. Laila Perla DO Aug 23, 2016 11:36 Stephen Samuel MD Aug 24, 2016 13:28
--- NOTE | 2016-08-23 18:23 | NUR ---
BP Patient hypertensive this AM, resolved with AM meds. Normotensive throughout rest of shift.
[2016-08-24] VITALS (9 sets, daily range): BP systolic 139–166; BP diastolic 53–64; PULSE 68–79; RESP 16; O2SAT 93–98
--- NOTE | 2016-08-24 05:04 | NUR ---
Respiratory Pt on 5L oxymask at beginning of shift with SpO2 approx. 98%; pt denied feeling dyspneic. Weaned throughout shift to 3L oxymask and SpO2 approx. 92-94% this AM via CPOX. VSS, tele SR 70s.
[2016-08-24] MEDS: Pantoprazole 20 mg ER24 Tablet PO SCH (06:38)
[2016-08-24 08:43] LABS: BASOPHILS % (AUTO) 1.7 % (0-3); EOSINOPHILS % (AUTO) 1.2 % (0-5); MONOCYTES % (AUTO) 6.4 % (4-12); Mean Corpuscular Hemoglobin 26.8 pg (27.0-35.0); Mean Corpuscular Volume 86.6 fL (81-100); NEUTROPHILS % (AUTO) 70.5 % (40-74); Platelet Count 151 bil/L (150-400)
--- NOTE | 2016-08-24 08:45 | NUR ---
pt arrived to [facility] for DIALYSIS at ~0815 via bed accompanied by report received from EZ RN (PCC) tele medical technologist informed of temp room location nuclear medicine technician at bedside
--- NOTE | 2016-08-24 10:37 | PCM.PNNEPH ---
Subjective Date of Service Aug 24, 2016 Subjective Seen during HD. Stable. No CP/SOB. Exam Vital Signs Vital Sign - Last Date Time Temp Pulse Resp B/P Pulse Ox O2 Delivery O2 Flow Rate FiO2 08/24/16 03:22 36.8 68 16 139/59 94 OxyMask 3.00 08/21/16 11:10 50 Intake and Output 08/23/16 08/23/16 08/24/16 Cumulative From/Thru 15:00 23:00 07:00 08/21/16 07:15 - 08/24/16 05:54 Intake Total 170 ml 300 ml 970 ml Output Total 6050 ml Balance 170 ml 300 ml -5080 ml Intake Oral 170 ml 300 ml 970 ml IV Total 0 ml Output Urine Total 50 ml Ultrafiltrate 6000 ml # Voids 2 3 # Bowel Movements 0 1 Exam General appearance: Awake, alert, oriented x3. On face mask HEENT: No pallor. No jaundice. Positive for JVD. No lymphadenopathy. No thyroid enlargement. Heart: Regular rate and rhythm. Normal S1, S2. No murmurs, rubs or gallops. Lungs: Equal breath sounds bilaterally. No wheezing. No rhonchi. Decreased breath sound at the bases. Abdomen: Soft, nontender, nondistended. No hepatosplenomegaly. No rebound. No guarding. No rigidity. Extremities: No significant edema on the lower extremities. Left AV fistula with good thrill and bruit. Lab and Diagnostics Result Diagram: 08/24/16 0825 08/24/16 0825 X-Rays, CTs and MRIs X-RAY CHEST ONE VIEW, PORTABLE IMPRESSION: 1. Limited study demonstrates bilateral pleural effusions with pulmonary edema and bibasilar consolidation which may reflect pneumonia or atelectasis. Dictated by: Minesh Carver M.D. on 08/21/2016 at 11:18 X-RAY CHEST ONE VIEW, PORTABLE IMPRESSION: Multiple areas of abnormality present as discussed above bilaterally , potentially a manifestation of infection or neoplasm. Followup assessment by two-view chest when symptoms have improved would be recommended. Improved pulmonary edema pattern. Both pneumonia and neoplasm remaining possible explanations for the abnormalities noted above. Dictated by: Freddy Zhang M.D. on 08/22/2016 at 9:17 . Plan Impression 1. End-stage renal disease with fluid overload. 4hr, UF 2-3L DFR 600, BFR 400 AVF, 2K, 35HCO3 2. Hypertension, BP improved. 3. Renal osteodystrophy. 4. Lung mass per CXR. 5. Bilateral pleural effusion and pericardial effusion, malignancy need to be ruled out. 6. HErEF, EF 35-40% 7. Recent h/o diverticulitis. 8. Intermittent RUQ pain/cramps. Plan: Next HD on . CT chest with contrast pending. Joaquim Singh MD Aug 24, 2016 10:37
--- NOTE | 2016-08-24 11:55 | NUR ---
Dialysis/Transfer Pt. left room 2000 [facility] at ~0810 for dialysis at [facility] room 243-2. Pt. left with and was told where she was going using the diplomatic interpreter/translator stick. Pt. left with no c/o pain and no morning medications where given. Report given via telephone with [facility] RN. Pt. will be permanently staying at [facility] room 251-1. Telephone report was given to Macrello Rodriguez RN at ~1140. Belongings from Pt. in room 2000 PCC was taken over by ALEXI Rodriguez
--- NOTE | 2016-08-24 12:40 | NUR ---
pt transferred to [facility] 251-1 post DIALYSIS at 1230 see chute worker note, interventions, and/or graphic flow for treatment details and pt belongings at bedside
[2016-08-24] MEDS: Heparin 5,000 Unit/mL Inj SUBQ SCH ×2 (12:57→21:27)
[2016-08-24] MEDS: Sodium Chloride LOK Flush 10 mL Syringe IVFLUSH SCH ×2 (12:57→17:04)
--- NOTE | 2016-08-24 13:06 | NUR ---
dialysis note 4 hr HD tx 2000ml net UF removed 2 15 g needles to VANESSA fistula QB 350 See DTR for complete vitals trends Pt rested comfortably thru tx in stable condition Sureseals/clamps X10 mins post tx Report given and pt transferred to room 251 MOC
--- NOTE | 2016-08-24 13:24 | NUR ---
Transfer Pt transferred from dialysis/PCC at 1250. VSS. Sats stable on 2L oxymask. Left upper arm Fistula stable w/ bruit and thrill and no bleeding. Glucose stable. Chyron Operator used to assess. Very mild abdominal right upper quadrant "squeezing" discomfort but put states she is fine. Mild constipation. No chest pain or SOB. Oriented to room. Per Md at 1320 ok to hold am dose of apresoline and give other meds. Will continue to monitor.
--- NOTE | 2016-08-24 14:48 | NUR ---
Pain notified that pt reports very mild RUQ "squeezing" on assessment but abdomen soft and nontender to palpation. VSS. Will continue to monitor. Addendum: 08/24/16 at 1503 by JAYY HUSSEIN RN Per MD to continue to monitor. No new orders. UA pending.
--- NOTE | 2016-08-24 15:16 | PCM.PNMED ---
Subjective Date of Service Aug 24, 2016 Subjective Belle Kevin is a 72-year-old [place] speaking woman with past medical history significant for end-stage renal disease on hemodialysis Tuesday and Tuesday, hypertension, diabetes, anemia, hyperlipidemia, hypothyroidism presented to [facility] emergency department due to severe shortness of breath and respiratory distress. Overnight: No acute events reported. Today: She is feeling better today. She still has mild shortness of breath but states that she no longer feels like she cannot take a deep breath. She denies any chest pain, fevers, chills or significant weakness. The remainder of ROS is negative except as noted above. Exam Vital Signs Vital Sign - Last Date Time Temp Pulse Resp B/P Pulse Ox O2 Delivery O2 Flow Rate FiO2 08/24/16 12:49 78 151/57 08/24/16 12:39 98 OxyMask 2.00 08/24/16 03:22 36.8 16 08/21/16 11:10 50 Intake and Output 08/23/16 08/23/16 08/24/16 Cumulative From/Thru 15:00 23:00 07:00 08/21/16 07:15 - 08/24/16 05:54 Intake Total 170 ml 300 ml 970 ml Output Total 6050 ml Balance 170 ml 300 ml -5080 ml Intake Oral 170 ml 300 ml 970 ml IV Total 0 ml Output Urine Total 50 ml Ultrafiltrate 6000 ml # Voids 2 3 # Bowel Movements 0 1 Exam General appearance: Awake, alert, oriented x3. On face mask HEENT: No pallor. No jaundice. Positive for JVD. No lymphadenopathy. No thyroid enlargement. Heart: Regular rate and rhythm. Normal S1, S2. No murmurs, rubs or gallops. Lungs: Equal breath sounds bilaterally. No wheezing. No rhonchi. Decreased breath sound at the bases. Abdomen: Soft, nontender, nondistended. No hepatosplenomegaly. No rebound. No guarding. No rigidity. Extremities: No significant edema on the lower extremities. Left AV fistula with good thrill and bruit. IVs and Medications Medications Reviewed: Medications were reviewed in detail Lab and Diagnostics Result Diagram: 08/24/1682408/24/16824 X-Rays, CTs and MRIs X-RAY CHEST ONE VIEW, PORTABLE IMPRESSION: 1. Limited study demonstrates bilateral pleural effusions with pulmonary edema and bibasilar consolidation which may reflect pneumonia or atelectasis. Dictated by: Minesh Carver M.D. on 08/21/2016 at 11:18 X-RAY CHEST ONE VIEW, PORTABLE IMPRESSION: Multiple areas of abnormality present as discussed above bilaterally , potentially a manifestation of infection or neoplasm. Followup assessment by two-view chest when symptoms have improved would be recommended. Improved pulmonary edema pattern. Both pneumonia and neoplasm remaining possible explanations for the abnormalities noted above. Dictated by: Freddy Zhang M.D. on 08/22/2016 at 9:17 . Assessment & Plan Belle Kevin is a 72-year-old [place] speaking woman with past medical history significant for end-stage renal disease on hemodialysis Tuesday and Tuesday, hypertension, diabetes, anemia, hyperlipidemia, hypothyroidism presented to [facility] emergency department due to severe shortness of breath and respiratory distress. Acute hypoxemic respiratory failure secondary to pulmonary edema secondary to fluid overload in the setting of ESRD. Emergent hemodialysis on 08/21. Moderate symptomatic improvement. -Planning repeat dialysis while inpatient; further volume reduction Abdominal pain, present on admission.IMproving. Mostly localized RUQ but migratory and crampy in nature. She underwent CT scan at [facility] on with borderline call of right ascending colon inflammation. She has no gallbladder. He was afebrile without diarrhea. Differential diagnosis is chronic mesenteric ischemia, possible diverticular disease - Supportive care - Maintain good bowel regimen with scheduled psyllium and other laxatives as needed - elixir as antispasmodic when necessary - Tramadol if needed, but prefer to limit opioid - contrast CT if febrile or rising white count Diverticulosis versus colitis, treated 5 days of metronidazole and Bactrim therapy with no change in symptoms. No associated diarrhea, leukocytosis or fever. Doubt this is acute diverticulitis -At this time we will not continue any further antibiotics as discussed seems to be an unlikely cause of her decline. Elevated troponin of uncertain significance, likely secondary to heart strain from pulmonary edema. POA and stable. Likely secondary to cardiac strain from fluid overload. Echo demonstrates effusion but no tamponade and no focal akinesis. No other clinical evidence to suggest active coronary disease - no further workup for CAD at this time Lung mass with bilateral pleural effusions, pericardial effusion and history of ascites, POA and stable. -Fluid May be due to fluid overload in conjunction with heart failure and inadequate dialysis -However differential should include a malignant process as the patient has been losing weight progressively over the last several months -Lung mass was previously seen in 2012, may be due to scarring. Repeat CT chest pending. ESRD on hemodialysis Tuesday. POA and stable. -Dr. Serrano consulted, appreciate time and expertise. -Continue outpatient medications. -The patient's brought in some medications from home, however the patient's medication list from [facility] indicates that she is on CellCept and Prednisone. -Will need to clarify with the patient's pharmacy Diabetes mellitus type 2, POA and stable. -Hold oral agent. -Initiate insulin if BG greater than 180 Hypertension, POA and stable. - Continue multiple medications Chronic normocytic anemia likely secondary to ESRD -Continue to monitor Hyperlipidemia -Continue statin Hypothyroidism CODE STATUS: Full code Disposition: Anticipate patient can be discharged tomorrow or the day after pending improved respiratory status. VTE Prophylaxis: Sub-Q Heparin (Unfractionated) Resuscitation Status: CPR: Attempt Resuscitation Attending Statement Patient seen and examined with house staff. Agree with all attached documentation. Laila Perla DO Aug 24, 2016 13:58 Stephen Samuel MD Aug 24, 2016 16:50
[2016-08-24 15:31] LABS: APPEARANCE,URINE CLEAR (CLEAR,HAZY); COLOR,URINE YELLOW (YELLOW); OCCULT BLOOD,URINE SMALL (NEGATIVE); PH,URINE 8.5 (5.0-8.0); UROBILINOGEN,URINE NORMAL (NORMAL)
--- NOTE | 2016-08-24 15:49 | DRSVH ---
PROCEDURE: CT CHEST WITHOUT CONTRAST ([id number]) INDICATIONS: lung mass TECHNIQUE: Noncontrast 5 mm thick sections acquired from the pulmonary apices to the posterior costophrenic angl es. 7 mm thick coronal and sagittal MIP reformats were then acquired. For radiation dose reduction, the following was used: automated exposure control, adjustment of mA and/or kV according to patient size. COMPARISON: None. FINDINGS: Image quality: Excellent. Lungs and pleura: Moderate bilateral pleural effusions. Possibly loculated 4.1 x 2.0 x 2.0 cm minor f issure fluid collection. There is volume loss in the left lower lobe. Dense right apical masslike sca rring measuring 3.3 x 1.9 CM. Lesser left apical scarring. Mediastinum: Enlarged heart. Pericardial effusion measuring up to 5 mm. No mediastinal masses or lymp hadenopathy. Calcified hilar and mediastinal lymph nodes. Grossly normal soft tissues. No esophageal hiatal hernia. Bones and chest wall: No suspicious bony lesions. No vertebral body compression fractures. No axil naomi or supraclavicular adenopathy by size criteria. Thyroid gland is normal where seen. Left breast calcifications.. Abdomen: Dense hepatic calcification. Otherwise visualized upper abdominal solid organs and bowel loo ps appear normal in the absence of contrast. IMPRESSION: 1. Moderate bilateral pleural effusions with dense left lower lobe volume loss. Superimposed pneumoni a at this site is possible. 2. Spiculated right apical masslike scarring. This finding may require a PET/CT to exclude neoplasm f ollowing resolution of the patient's acute pathology. 3. Moderate pericardial effusion measuring 5 mm in diameter. Underlying cardiomegaly. 4. Calcified mediastinal and hilar lymph nodes likely representing previous granulomatous infection. 5. Fluid within the right minor fissure may be loculated. 6. Left breast calcifications. Please correlate with history of screening mammography or with diagnos tic mammogram following resolution of the patient's acute medical issues. Dictated by: Alejandro Baumann M.D. on 08/24/2016 at 15:34 Approved by: Alejandro Baumann M.D. on 08/24/2016 at 15:42
--- NOTE | 2016-08-24 17:45 | NUR ---
Status Pt stable on RA with sats 95% - MD notified. Family at bedside. Pt ambulating to bathroom prn with SBA. No new pain. Pt comfortable. Will continue to monitor.
[2016-08-25] VITALS (7 sets, daily range): BP systolic 118–161; BP diastolic 54–75; PULSE 72–79; RESP 14–18; O2SAT 94–99
[2016-08-25] MEDS: Sodium Chloride LOK Flush 10 mL Syringe IVFLUSH SCH ×3 (01:01→17:35)
[2016-08-25] MEDS: Pantoprazole 20 mg ER24 Tablet PO SCH (05:58)
--- NOTE | 2016-08-25 06:15 | NUR ---
Activity/constipation Pt stable on RA with sats 93%-95%. Spouse at bedside. Pt ambulating to bathroom with spouse SBA. NO complaints of pain or discomfort, except when she coughs or deep breathes then her RUQ aches. pt reported she is constipated. last BM was on August 22. gave prune juice, PRN Senna, and Miralax. pt reported no BM during the night, but she feels she may go during the day time. Will continue to monitor.
[2016-08-25] MEDS ORDERED: Pantoprazole 4 mg/mL 10 mL Inj IVPUSH SCH (07:55)
[2016-08-25] MEDS: Heparin 5,000 Unit/mL Inj SUBQ SCH ×3 (08:01→21:10)
[2016-08-25] MEDS ORDERED: Pantoprazole 40 mg ER24 Tablet PO SCH (08:30)
--- NOTE | 2016-08-25 08:38 | NUR ---
Status Pt continues to have intermittent mild RUQ discomfort and had black formed stool this am. notified. To hold heparin this am. Rocael sent. VSS and tele stable. Will continue to monitor.
[2016-08-25 09:04] LABS: EOSINOPHILS % (AUTO) 1.8 % (0-5); MONOCYTES % (AUTO) 9.4 % (4-12); Mean Corpuscular Hemoglobin 26.8 pg (27.0-35.0); Mean Corpuscular Volume 86.7 fL (81-100); NEUTROPHILS % (AUTO) 68.1 % (40-74); Platelet Count 155 bil/L (150-400)
--- NOTE | 2016-08-25 10:25 | PCM.PNMED ---
Subjective Date of Service Aug 25, 2016 Subjective spoke with patient via Austrian certified court interpreter pt had black stool for the first time, still c/o RUQ, epigastric pain, getting PPI 20mg qd stools were sent for [place], pending pt denied sob, cough, underwent HD tolerated well, Exam Vital Signs Vital Sign - Last Date Time Temp Pulse Resp B/P Pulse Ox O2 Delivery O2 Flow Rate FiO2 08/25/16 07:53 75 161/75 08/25/16 06:04 37.1 14 94 Room Air 08/24/16 12:39 2.00 08/21/16 11:10 50 Intake and Output 08/24/16 08/24/16 08/25/16 Cumulative From/Thru 15:00 23:00 07:00 08/21/16 07:15 - 08/25/16 06:55 Intake Total 250 ml 336 ml 1556 ml Output Total 2000 ml 50 ml 50 ml 8150 ml Balance -2000 ml 200 ml 286 ml -6594 ml Intake Oral 250 ml 336 ml 1556 ml IV Total 0 ml Output Urine Total 50 ml 50 ml 150 ml Ultrafiltrate 2000 ml 8000 ml # Voids 3 # Bowel Movements 0 1 Exam cachectic female, speaks only Austrian NAD, comfortably laying down on the bed no JVD, MMM, no LAD RRR, nl s1, s2 no mrg decreased BS at bases, S,ND, RUQ/epigastric td,normoactive BS+ warm, no edema, pulses 2/2 IVs and Medications Medications Reviewed: Medications were reviewed in detail Lab and Diagnostics Result Diagram: 08/25/16 0841 08/25/16 0841 X-Rays, CTs and MRIs X-RAY CHEST ONE VIEW, PORTABLE IMPRESSION: 1. Limited study demonstrates bilateral pleural effusions with pulmonary edema and bibasilar consolidation which may reflect pneumonia or atelectasis. Dictated by: Minesh Carver M.D. on 08/21/2016 at 11:18 X-RAY CHEST ONE VIEW, PORTABLE IMPRESSION: Multiple areas of abnormality present as discussed above bilaterally , potentially a manifestation of infection or neoplasm. Followup assessment by two-view chest when symptoms have improved would be recommended. Improved pulmonary edema pattern. Both pneumonia and neoplasm remaining possible explanations for the abnormalities noted above. Dictated by: Freddy Zhang M.D. on 08/22/2016 at 9:17 . Assessment & Plan Belle Kevin is a 72-year-old Austrian speaking woman with past medical history significant for end-stage renal disease on hemodialysis Tuesday and Tuesday, hypertension, diabetes, anemia, hyperlipidemia, hypothyroidism presented to [facility] emergency department due to severe shortness of breath and respiratory distress. acute, active Acute hypoxemic respiratory failure secondary to pulmonary edema secondary to fluid overload in the setting of ESRD. Emergent hemodialysis on 08/21. Moderate symptomatic improvement. -Planning repeat dialysis while inpatient; further volume reduction, appreciate renal recs, plan for HD tomorrow -once pt is euvolemic from renal perspectives, will consider d/c Abdominal pain, present on admission.IMproving. Mostly localized RUQ but migratory and crampy in nature. She underwent CT scan at [facility] on with borderline call of right ascending colon inflammation. She has no gallbladder. He was afebrile without diarrhea. Differential diagnosis is chronic mesenteric ischemia, possible diverticular disease, possible PUD given new onset possible melena -will get FOBT today, PPI chg from 20mg to 40mg bid - Supportive care - Maintain good bowel regimen with scheduled psyllium and other laxatives as needed - elixir as antispasmodic when necessary - Tramadol if needed, but prefer to limit opioid - contrast CT if febrile or rising white count Lung mass with bilateral pleural effusions, pericardial effusion and history of ascites, POA and stable. Repeat chest CT 08/24 showed bilateral pleural effusion, Rt upper lobe mass, which seemed chronic previously seen in 2012, may be due to scarring. Fluid May be due to fluid overload in conjunction with heart failure and inadequate dialysis -needs to consider further w/u for mass, can be done as outpatient, spoke to pulmonary resident today -will consider repeat CXR to monitor pleural effusion, consider thoracentesis if it's not improving with HD, diuretics, for diagnostic. chronic, stable, resolved Diverticulosis versus colitis, treated 5 days of metronidazole and Bactrim therapy with no change in symptoms. No associated diarrhea, leukocytosis or fever. Doubt this is acute diverticulitis -At this time we will not continue any further antibiotics as discussed seems to be an unlikely cause of her decline. Elevated troponin of uncertain significance, likely secondary to heart strain from pulmonary edema. POA and stable. Likely secondary to cardiac strain from fluid overload. Echo demonstrates effusion but no tamponade and no focal akinesis. No other clinical evidence to suggest active coronary disease - no further workup for CAD at this time ESRD on hemodialysis Tuesday. POA and stable. -Dr. Serrano consulted, appreciate time and expertise. -Continue outpatient medications. -The patient's brought in some medications from home, however the patient's medication list from [facility] indicates that she is on CellCept and Prednisone. -Will need to clarify with the patient's pharmacy Diabetes mellitus type 2, POA and stable. -Hold oral agent. -Initiate insulin if BG greater than 180 Hypertension, POA and stable. - Continue multiple medications Chronic normocytic anemia likely secondary to ESRD -Continue to monitor Hyperlipidemia -Continue statin Hypothyroidism CODE STATUS: Full code Disposition: likely 1-2more days, VTE Prophylaxis: Sub-Q Heparin (Unfractionated) VTE Mechanical Devices: Intermittant Pneumatic CD Resuscitation Status: CPR: Attempt Resuscitation Time spent 35min Bianca Patel MD Aug 25, 2016 10:25
--- NOTE | 2016-08-25 11:39 | PCM.PNNEPH ---
Subjective Date of Service Aug 25, 2016 Subjective Good oxygenation, not required O2 supplement. HDx2 consecutive days. No CP/SOB. Exam Vital Signs Vital Sign - Last Date Time Temp Pulse Resp B/P Pulse Ox O2 Delivery O2 Flow Rate FiO2 08/25/16 10:16 79 08/25/16 07:53 161/75 08/25/16 06:04 37.1 14 94 Room Air 08/24/16 12:39 2.00 08/21/16 11:10 50 Intake and Output 08/24/16 08/24/16 08/25/16 Cumulative From/Thru 15:00 23:00 07:00 08/21/16 07:15 - 08/25/16 06:55 Intake Total 250 ml 336 ml 1556 ml Output Total 2000 ml 50 ml 50 ml 8150 ml Balance -2000 ml 200 ml 286 ml -6594 ml Intake Oral 250 ml 336 ml 1556 ml IV Total 0 ml Output Urine Total 50 ml 50 ml 150 ml Ultrafiltrate 2000 ml 8000 ml # Voids 3 # Bowel Movements 0 1 Exam General appearance: Awake, alert, oriented x3. HEENT: No pallor. No jaundice. Positive for JVD. No lymphadenopathy. No thyroid enlargement. Heart: Regular rate and rhythm. Normal S1, S2. No murmurs, rubs or gallops. Lungs: Equal breath sounds bilaterally. No wheezing. No rhonchi. Decreased breath sound at the bases. Abdomen: Soft, nontender, nondistended. No hepatosplenomegaly. No rebound. No guarding. No rigidity. Extremities: No significant edema on the lower extremities. Left AV fistula with good thrill and bruit. Lab and Diagnostics Result Diagram: 08/25/16 0841 08/25/16 0841 X-Rays, CTs and MRIs X-RAY CHEST ONE VIEW, PORTABLE IMPRESSION: 1. Limited study demonstrates bilateral pleural effusions with pulmonary edema and bibasilar consolidation which may reflect pneumonia or atelectasis. Dictated by: Minesh Carver M.D. on 08/21/2016 at 11:18 X-RAY CHEST ONE VIEW, PORTABLE IMPRESSION: Multiple areas of abnormality present as discussed above bilaterally , potentially a manifestation of infection or neoplasm. Followup assessment by two-view chest when symptoms have improved would be recommended. Improved pulmonary edema pattern. Both pneumonia and neoplasm remaining possible explanations for the abnormalities noted above. Dictated by: Freddy Zhang M.D. on 08/22/2016 at 9:17 . Plan Impression 1. End-stage renal disease with fluid overload. Now euvolemic. HD x 2 consecutive days. 2. Hypertension, BP improved. 3. Renal osteodystrophy. 4. Lung mass vs scarring. 5. Bilateral pleural effusion and pericardial effusion. 6. HErEF, EF 35-40%. 7. Recent h/o diverticulitis. 8. Intermittent RUQ pain/cramps. Plan: Next HD on . The rest of management as per primary team. Joaquim Singh MD Aug 25, 2016 11:39
--- NOTE | 2016-08-25 13:30 | NUR ---
Reflux notified that pt had relief of crampy/sharp RUQ pain worse with deep inspiration with tramadol. Will continue to monitor. also notified martine tpt had very small episode of reflux with lunch. Used sap mobility architect to discuss episode. Pt denied choking. No nausea. MD has started PPI. Per MD tyson negative. VSS. Will monitor.
--- NOTE | 2016-08-25 14:26 | NUR ---
Smoking Pipe Maker Face to face sensor operator stopped by pt room. Clarified that pt understands both [place]ian and [place] Citizen. face to face sensor operator Able to convey pt reports feeling like breathing has been "stifled" and can't take deep breaths. is better after pain meds but pt thinks this is GI related as it is relieved with burping and thinks her stomach needs to be "emptied", wants to know plan to "fix this". VSS. notified. Will monitor.
--- NOTE | 2016-08-25 15:41 | NUR ---
Social Work-readiness for discharge: Data:EMR Reviewed. Pt is on day 4 of hospitalization for respiratory distress per H&P. Pt is not medically stable anticipate 1-2 more days. Pt resides at home with family where she remains independent with ADLS. Pt goes to dialysis T/TH/Tue. Per RN notes, pt has been up independent in her room. No anticipated discharge needs identified. SW will continue to follow. Assessment:Pt who is independent at baseline. Plan:Pt to discharge home when medically stable via POV. No anticipated discharge needs identified. SW will continue to follow if needs arise. LEONARDO Rubi
--- NOTE | 2016-08-25 16:14 | NUR ---
Used Ipad firestopper installer in order to deliver HARJINDER. Patient understood, and signed.
--- NOTE | 2016-08-25 18:35 | NUR ---
Message left for boiling house hand [facility] tomorrow am if possible 0730 for MD assessment.
[2016-08-26] VITALS (8 sets, daily range): BP systolic 127–155; BP diastolic 51–67; PULSE 61–83; RESP 16–18; O2SAT 94–98
[2016-08-26] MEDS: Sodium Chloride LOK Flush 10 mL Syringe IVFLUSH SCH ×3 (00:44→17:11)
--- NOTE | 2016-08-26 05:39 | NUR ---
PAIN Pt. reports tolerable pain in mid abdomen, denies chest pain and SOB, O2 sats high 90s, used ipad mgmt specialist, family at bedside to help with care, on continues tele monitoring SR 77 with occasional PAC per vehicle monitor technician, VSS, afebrile, call light in reach at all times.
[2016-08-26] MEDS ORDERED: OMEP20CA11 PO (08:36)
[2016-08-26] MEDS: Pantoprazole 20 mg ER24 Tablet PO SCH (08:38)
[2016-08-26] MEDS: Heparin 5,000 Unit/mL Inj SUBQ SCH ×2 (08:41→20:21)
--- NOTE | 2016-08-26 11:15 | PCM.DIMED ---
Bianca Patel MD 08/26/16 1115: Discharge Instructions Date of Service Aug 26, 2016 Dates of Hospitalization Aug 21, 2016 at 07:55 Discharge Diagnosis Discharge Diagnosis Fluid overload with pleural effusion and edema in the setting of ESRD, systolic CHF Diet Discharge Diet: Renal Diet, Other (Please avoid salt to maintain your volume status ) Activity Discharge Activity: No restrictions Call your provider Call your provider for: Shortness of breath Patient Instructions Patient Instructions You were hospitalized with difficulty of breathing, underwent serial dialysis, which greatly improved your breathing. Please note that you should cut down salt from your diet, be compliant to medicine and dialysis. 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 Please follow up with your primary doctor, especially regarding his findings on CT scan of chest, you may need repeat CT scan or diagnostic intervention. Please note that your were found to have heart failure as well, which could explain your newly developed water in your lungs. Follow-up plan Please follow up with your primary doctor in 2weeks Follow-up with PCP in: 1 week Acosta Elias MD 08/28/16 1330: Discharge Instructions Date of Service date of service August 29, 2016 Discharge Diagnosis Discharge Diagnosis probable ACS, poa, improving Acute CHF secondary to systolic dysfunction, poa, improved Acute hypoxemic respiratory failure, poa, resolved Possible Lung mass with bilateral pleural effusions, pericardial effusion and history of ascites, POA and stable. Diverticulosis, poa, improved ESRD, stage 5, poa active Diabetes mellitus type 2, POA and stable. Hypertension, POA and stable. Chronic normocytic anemia, poa, stable Hypothyroidism, poa, stable Right apical spiculated mass/scar, poa, active,, needs follow up Brest calcifications, poa, active,,, needs follow up Medication Instructions Additional med instructions DISCARGE MEDICATION FOR PATIENT TO TAKE: New Medications: 1- Asprin 81 mg daily 2- Lasix 20 mg daily 3- Crestor 10 mg daily Continue Following Medications 1- Coreg 37.5 mg daily 2- Amlodipine 10 mg daily 3- Hydralazine 100 mg twice a day 4- Benicar (olmersa) 40 mg daily 5- Prilosec 20 mg daily 6- Clonidine 0.1 mg ever 8 hours as needed for systolic blood pressure > 180 7- Calcium acetate 4 time a day Please take this list to your doctor to review and make changes or additions as needed. Patient Instructions Follow-up plan Also please set up and appointment with a intermediate frame tender in [place] to follow heart problems. Have your primary care provider request a copy of the "discharge summary" for his records and to help see the issues need follow up and why Bianca Patel MD Aug 26, 2016 11:15 Acosta Elias MD Aug 28, 2016 13:30
[2016-08-26] MEDS ORDERED: FURO80TA83 PO (11:20)
--- NOTE | 2016-08-26 11:21 | PCM.PNNEPH ---
Subjective Date of Service Aug 26, 2016 Subjective Feeling better, no CP/SOB. No F/C/N/V. Exam Vital Signs Vital Sign - Last Date Time Temp Pulse Resp B/P Pulse Ox O2 Delivery O2 Flow Rate FiO2 08/26/16 10:20 36.8 75 16 152/56 95 Room Air 08/24/16 12:39 2.00 08/21/16 11:10 50 Intake and Output 08/25/16 08/25/16 08/26/16 Cumulative From/Thru 15:00 23:00 07:00 08/21/16 07:15 - 08/26/16 06:04 Intake Total 365 ml 120 ml 2041 ml Output Total 20 ml 8170 ml Balance 345 ml 120 ml -6129 ml Intake Oral 350 ml 120 ml 2026 ml IV Total 15 ml 15 ml Output Urine Total 20 ml 170 ml Ultrafiltrate 8000 ml # Voids 1 4 # Bowel Movements 1 2 Exam General appearance: Awake, alert, oriented x3. HEENT: No pallor. No jaundice. Positive for JVD. No lymphadenopathy. No thyroid enlargement. Heart: Regular rate and rhythm. Normal S1, S2. No murmurs, rubs or gallops. Lungs: Equal breath sounds bilaterally. No wheezing. No rhonchi. Decreased breath sound at the bases. Abdomen: Soft, nontender, nondistended. No hepatosplenomegaly. No rebound. No guarding. No rigidity. Extremities: No significant edema on the lower extremities. Left AV fistula with good thrill and bruit. Lab and Diagnostics Result Diagram: 08/25/16 0841 08/25/16 0841 X-Rays, CTs and MRIs X-RAY CHEST ONE VIEW, PORTABLE IMPRESSION: 1. Limited study demonstrates bilateral pleural effusions with pulmonary edema and bibasilar consolidation which may reflect pneumonia or atelectasis. Dictated by: Minesh Carver M.D. on 08/21/2016 at 11:18 X-RAY CHEST ONE VIEW, PORTABLE IMPRESSION: Multiple areas of abnormality present as discussed above bilaterally , potentially a manifestation of infection or neoplasm. Followup assessment by two-view chest when symptoms have improved would be recommended. Improved pulmonary edema pattern. Both pneumonia and neoplasm remaining possible explanations for the abnormalities noted above. Dictated by: Freddy Zhang M.D. on 08/22/2016 at 9:17 . Plan Impression 1. End-stage renal disease with fluid overload. Improving. Now euvolemic. HD x 2 consecutive days. 2. Hypertension, BP improved. 3. Renal osteodystrophy. 4. Lung mass vs scarring. 5. Bilateral pleural effusion and pericardial effusion r/o fluid overload vs neoplasm. 6. HErEF, EF 35-40%. 7. Recent h/o diverticulitis. 8. Intermittent RUQ pain/cramps. Plan: HD today. Per renal, she can be d/c'd home after HD. Joaquim Singh MD Aug 26, 2016 11:21
--- NOTE | 2016-08-26 13:39 | PCM.PNMED ---
Subjective Date of Service Aug 26, 2016 Subjective pt denied sob, laying down flat, tolerating HD well. cardiology consulted given concern for ACS Exam Vital Signs Vital Sign - Last Date Time Temp Pulse Resp B/P Pulse Ox O2 Delivery O2 Flow Rate FiO2 08/26/16 10:20 36.8 75 16 152/56 95 Room Air 08/24/16 12:39 2.00 08/21/16 11:10 50 Intake and Output 08/25/16 08/25/16 08/26/16 Cumulative From/Thru 15:00 23:00 07:00 08/21/16 07:15 - 08/26/16 06:04 Intake Total 365 ml 120 ml 2041 ml Output Total 20 ml 8170 ml Balance 345 ml 120 ml -6129 ml Intake Oral 350 ml 120 ml 2026 ml IV Total 15 ml 15 ml Output Urine Total 20 ml 170 ml Ultrafiltrate 8000 ml # Voids 1 4 # Bowel Movements 1 2 Exam cachectic female, speaks only Nigerian NAD, comfortably laying down on the bed no JVD, MMM, no LAD RRR, nl s1, s2 no mrg decreased BS at bases, S,ND, RUQ/epigastric td,normoactive BS+ warm, no edema, pulses 2/2 IVs and Medications Medications Reviewed: Medications were reviewed in detail Lab and Diagnostics Result Diagram: 08/25/1641 08/25/16 0841 X-Rays, CTs and MRIs X-RAY CHEST ONE VIEW, PORTABLE IMPRESSION: 1. Limited study demonstrates bilateral pleural effusions with pulmonary edema and bibasilar consolidation which may reflect pneumonia or atelectasis. Dictated by: Minesh Carver M.D. on 08/21/2016 at 11:18 X-RAY CHEST ONE VIEW, PORTABLE IMPRESSION: Multiple areas of abnormality present as discussed above bilaterally , potentially a manifestation of infection or neoplasm. Followup assessment by two-view chest when symptoms have improved would be recommended. Improved pulmonary edema pattern. Both pneumonia and neoplasm remaining possible explanations for the abnormalities noted above. Dictated by: Freddy Zhang M.D. on 08/22/2016 at 9:17 . Assessment & Plan Belle Kevin is a 72-year-old Nigerian speaking woman with past medical history significant for end-stage renal disease on hemodialysis Tuesday and Tuesday, hypertension, diabetes, anemia, hyperlipidemia, hypothyroidism presented to [facility] emergency department due to severe shortness of breath and respiratory distress. acute, active probable ACS, new onset sCHF, POA, in the setting of hypertensive crisis, urgency. TTE 08/21 showed new onset decreased LV function EF35-40%, EKG showed TWI in I,aVR. trop+. as per PCP, pt never had cardiac dz, EKG was NSR. -appreciate Dr.Stewart diamond -tentative plan for stress test tomorrow -aspirin started per cardiology -vol management per renal team, pt is on BB Acute hypoxemic respiratory failure secondary to pulmonary edema secondary to fluid overload in the setting of hypertensive crisis, ESRD, probable ACS with new onset HFrEF. Emergent hemodialysis on 08/21, -HD today as scheduled, seems euvolemic on exam, SpO2 maintained w/o O2 supplement -appreciate renal fluid management Abdominal pain, present on admission.IMproving. Mostly localized RUQ but migratory and crampy in nature. She underwent CT scan at [facility] on with borderline call of right ascending colon inflammation. She has no gallbladder. He was afebrile without diarrhea. Differential diagnosis is chronic mesenteric ischemia, possible diverticular disease, possible PUD, angina equivalent. pt had episode of black stool on 08/25, FOBT was negative. -will monitor sx for now Lung mass with bilateral pleural effusions, pericardial effusion and history of ascites, POA and stable. Repeat chest CT 08/24 showed bilateral pleural effusion, Rt upper lobe mass, which seemed chronic previously seen in 2012, may be due to scarring. Fluid May be due to fluid overload in conjunction with new onset systolic CHF -repeat CXR to see improvement of pleural effusion, will consider thoracentesis if it remains in same amount chronic, stable, resolved Diverticulosis versus colitis, treated 5 days of metronidazole and Bactrim therapy with no change in symptoms. No associated diarrhea, leukocytosis or fever. Doubt this is acute diverticulitis -At this time we will not continue any further antibiotics as discussed seems to be an unlikely cause of her decline. Elevated troponin of uncertain significance, likely secondary to heart strain from pulmonary edema. POA and stable. Likely secondary to cardiac strain from fluid overload. Echo demonstrates effusion but no tamponade and no focal akinesis. No other clinical evidence to suggest active coronary disease - no further workup for CAD at this time ESRD on hemodialysis Tuesday. POA and stable. -Dr. Serrano consulted, appreciate time and expertise. -Continue outpatient medications. -The patient's brought in some medications from home, however the patient's medication list from [facility] indicates that she is on CellCept and Prednisone. -Will need to clarify with the patient's pharmacy Diabetes mellitus type 2, POA and stable. -Hold oral agent. -Initiate insulin if BG greater than 180 Hypertension, POA and stable. - Continue multiple medications Chronic normocytic anemia likely secondary to ESRD -Continue to monitor Hyperlipidemia -Continue statin Hypothyroidism CODE STATUS: Full code Disposition: pending due to cardiac w/u daughter in law: [phone] [place], Indian speaking, primary animal caregiver VTE Prophylaxis: Sub-Q Heparin (Unfractionated) VTE Mechanical Devices: Intermittant Pneumatic CD Resuscitation Status: CPR: Attempt Resuscitation Time spent 35min Bianca Patel MD Aug 26, 2016 13:38
--- NOTE | 2016-08-26 14:48 | CONS ---
[address] [address] CONSULTATION REPORT PATIENT: AKASH WILKS : 1945 MR#: [id number] ADMIT: 08/21/2016 JOB ID: [id number] CARDIOLOGY CONSULTATION: DATE OF SERVICE: 08/26/2016 REQUESTING PHYSICIAN/REASON FOR CONSULTATION: Dr. Patel has asked that I consult on this 71-year-old Irish female with end-stage renal disease, admitted with respiratory distress and an abnormal echocardiogram. HISTORY: The history is obtained through an academic computing director and is somewhat challenging but apparently the patient has never had any known cardiac issues although does have a longstanding history of diabetes, hyperlipidemia, and ckevgwmoo-hq-frrjunm hypertension with end-stage renal disease, on chronic dialysis. She was recently seen at the [facility] Emergency Department because of abdominal pain and was felt to have probable diverticulitis with colitis. A chest CT at that time also showed the occurrence of pleural and pericardial effusions, apparently chronic with some improvement since her last exam. She was treated with antibiotics and discharged. However, five days later, she noted the abrupt onset of significant dyspnea. Medics were summoned and found her with oxygen saturations in the 80s with a systolic blood pressure 224/97. She was treated in the emergency department with BiPAP and a chest x-ray was consistent with pulmonary edema. An urgent echocardiogram suggested mild global hypokinesis with an EF of 35%-40% with mild LVH. There may be a small apical area of hypokinesis, but there is a dyssynchronous contraction pattern that makes this challenging. There is mild mitral regurgitation, and on my personal review of the images, I would assess the pericardial effusion is only small without any evidence of tamponade. Large bilateral pleural effusions were noted. Her ECG showed sinus tachycardia 133, with left atrial enlargement and LVH with strain pattern with a probable left anterior fascicular block with poor R-wave progression. She was treated with stat hemodialysis with resolution of her symptoms, although she has continued to have occasional intermittent right upper quadrant pain. She has been felt to have significant volume overload and therefore has undergone repetitive hemodialysis. Her initial troponin was borderline elevated at 0.047 but has not been repeated. She generally has felt better and now states that her breathing is back to normal. She denies any chest discomfort on presentation or during her hospitalization and feels that her breathing is no longer restricted. A chest CT again suggested bilateral pleural effusions with possible spiculated mass versus scarring at the right apex which has been previously noted as well. Her blood pressures here have been moderately elevated at 140-160. She denies any exertional chest discomfort or palpitations. She has had no lightheadedness with the exception of a syncopal episode four years ago at the time of having gallstones. PAST MEDICAL HISTORY: Notable for end-stage renal disease, chronic anemia, and hypothyroidism, although it does not appear that she is on any thyroid replacement medication. She is status post cholecystectomy and appendectomy. MEDICATIONS: Home medications: 1. 10 mg daily. 2. Calcitriol 0.2 mcg daily. 3. Carvedilol 12.5 mg b.i.d. 4. Clonidine 0.1 mg daily. 5. Furosemide 20 mg daily. 6. Hydralazine 25 mg b.i.d. 7. Lovastatin 40 mg daily. 8. CellCept 2 mg every 48 hours. 9. Benicar 40 mg daily. 10. Prilosec 20 mg b.i.d. 11. Prednisone 10 mg daily. 12. Januvia 25 mg daily. 13. Tramadol 50 mg q.8 hours p.r.n. FAMILY HISTORY: Her mother apparently had some type of heart issue but she does not know the details. SOCIAL HISTORY: The patient lives in [place] with her and has dialysis at the [facility]. She denies any alcohol consumption. REVIEW OF SYSTEMS: A complete review is performed and is notable for the gradual loss of weight over the last six months, although she cannot be more specific. She denies a reduced appetite. Denies any fevers or chills. She reports reduced left eye vision but no abrupt visual field cuts. Denies any ENT problems. Denies any hemoptysis. She has not noted any hematochezia although has had some black stools. Denies any hematuria with only minimal urine output on her nondialysis days. Denies any musculoskeletal complaints or neurologic symptoms. PHYSICAL EXAMINATION: Elderly Irish female who appears older than her stated age but in no distress, currently on hemodialysis. HR 75, BP has generally been in the 130-160 range. O2 saturation is 95% on room air. She has lost 8 kg since admission. Skin: Warm and dry. HEENT: EOMI without arcus. She has quite poor dentition with multiple missing teeth. Lungs: Slight crackles at both bases more at the right than on the left. CV: Nonpalpable PMI with a regular rhythm with a normal S1 and S2 without any appreciable murmurs or gallops. There is no obvious JVD. Carotid and femoral pulses are 2+ with a brisk upstroke with no bruit. Dorsalis pedis is 2+ bilaterally and posterior tibial pulses are nonpalpable. Abdomen: Soft, nondistended, with mild right upper quadrant tenderness to palpation but no guarding or rebound. There is no palpable liver edge. Normal bowel tones are present without bruits. Extremities: Warm without any clubbing, cyanosis, or edema. Neuro: Moves all four extremities. Psych: Awake, alert, and oriented. LABORATORY DATA: From yesterday showed a sodium of 132 with a potassium of 5.0. Her proBNP was greater than 70,000 on admission. Magnesium was 2.0. White count is 6.7, hematocrit of 36%. IMAGING: Chest CT as above. ECG: Her presenting ECG shows sinus tachycardia with LVH and strain pattern, but no other acute ST-segment abnormalities. Her ECG currently shows sinus rhythm at 72 bpm with fairly deep T-wave inversions in leads V1 through V5. These are new from an ECG from previous. IMPRESSION: 1. Respiratory failure with an abnormal echocardiogram. I suspect that her respiratory failure was predominantly due to her severe hypertension and volume overload which produced her pulmonary edema and now has been corrected with repetitive hemodialysis. Her LV systolic dysfunction may have been a manifestation of her hypertensive crisis and/or a variant of stress related cardiomyopathy. While my suspicion is low for an acute coronary syndrome, her deep T-wave inversions currently are more concerning and I will check troponin. As long as this is not markedly elevated, I would risk stratify her with a vasodilator myocardial perfusion imaging study to assess for ischemia. If this is normal, then I would not pursue any invasive evaluation as I suspect that she is a fairly poor invasive candidate given her multiple comorbidities and would simply continue to try to treat her medically with primary prevention. If her troponin is markedly elevated, then a repeat echocardiogram will be obtained to reassess ventricular function with a decision regarding invasive catheterization based on that result. 2. Hypertension. Currently borderline controlled. She may benefit from advancement of her carvedilol to 37.5 mg b.i.d. 3. Lipid status. Her lipid panel has not been checked. Given her diabetes, her LDL should be less than 100. 4. Right upper quadrant pain. Given reproduction with palpation, this is clearly not an anginal equivalent and most likely reflects underlying colitis as she has been previously documented to have. 5. Diabetes. Per the hospitalist. 6. Hypothyroidism. She is on no thyroid replacement. I would check a TSH. RECOMMENDATIONS: 1. Advance her carvedilol to 37.5 mg b.i.d. 2. Start aspirin 81 mg daily. 3. Check a troponin. As long as this is less than 1.0, I would proceed with a pharmacologic myocardial perfusion stress test in the morning. If this shows no concerning evidence for underlying ischemic heart disease, then I suspect that she can be discharged. If her troponin is greater than 1.0, then I would obtain a repeat limited echocardiogram to reassess left ventricular function. As long as she has not developed any new focal wall motion abnormalities, then I would again proceed with vasodilator pharmacologic stress test; whereas if she had a clear-cut regional wall motion abnormality, invasive evaluation may need to be entertained. Dr. Courtney will be available tomorrow to follow up on the patient as necessary. TIME INVOLVED: I spent 1 hour and 22 minutes reviewing the patient's medical record, interviewing the patient via an academic computing director, examining the patient, and communicating with her other providers.
--- NOTE | 2016-08-26 15:55 | NUR ---
Dialysis note: 4 hrs tx 3000 ml net UF MARV fistula, accessed w/ no problems Pls see DTR for VS details Qb 400 Heparin given O2 @ 2L via NC on Tolerated tx, slept at intervals Fistula needle sites clotted w/in 10 min Stable condition at end of tx Report given to Angeli COTTER
--- NOTE | 2016-08-26 17:26 | DRSVH ---
PROCEDURE: X-RAY CHEST, TWO VIEWS ([id number]) INDICATIONS: FU for plerual effusion TECHNIQUE: 2 views of the chest were acquired. COMPARISON: [facility], CR, XR CHEST 1VW (PORTABLE), 08/22/2016, 8:09. FINDINGS: Surgical changes and devices: None. Lungs and pleura: There is a marked decrease in the size of the left basilar pleural effusion and the pleural effusion within the right oblique fissure when compared with the study dated 08/22/16. There i s improved aeration throughout both lungs when compared with the prior study. Mediastinum: Mediastinal contours are normal. Heart size is decreased in size when compared with th e prior study. Bones and chest wall: No suspicious bony abnormalities. Soft tissues appear unremarkable. IMPRESSION: Decreased pleural effusion and decreased cardiomegaly when compared with the study dated 08/22/16. Dictated by: Meg Butler M.D. on 08/26/2016 at 17:17 Approved by: Meg Butler M.D. on 08/26/2016 at 17:19
--- NOTE | 2016-08-26 19:26 | NUR ---
Activity/Dialysis Pt. appropriate with call light. Railway Head Tender on a stick used for assessments today since pts. primary language is Estonian. Transferred over to dialysis this morning around 1200, finished around 1500. Pt. tolerated this well. Pt. informed of stress test tomorrow.
[2016-08-27] VITALS (9 sets, daily range): BP systolic 144–181; BP diastolic 54–68; PULSE 75–95; RESP 14–18; O2SAT 95–98
--- NOTE | 2016-08-27 | NUR ---
NPO Pt NPO at midnight.
[2016-08-27] MEDS: Sodium Chloride LOK Flush 10 mL Syringe IVFLUSH SCH ×3 (00:51→18:03)
[2016-08-27 07:02] LABS: BASOPHILS % (AUTO) 0.6 % (0-3); EOSINOPHILS % (AUTO) 3.3 % (0-5); MONOCYTES % (AUTO) 13.6 % (4-12); Mean Corpuscular Volume 87.9 fL (81-100); NEUTROPHILS % (AUTO) 56.9 % (40-74); Platelet Count 173 bil/L (150-400)
[2016-08-27] MEDS: Pantoprazole 20 mg ER24 Tablet PO SCH (07:51)
[2016-08-27] MEDS: Heparin 5,000 Unit/mL Inj SUBQ SCH ×2 (07:52→20:36)
[2016-08-27 08:01] LABS: Magnesium 1.9 mg/dL (1.6-2.6); Phosphorus 3.1 mg/dL (2.5-4.9)
--- NOTE | 2016-08-27 10:50 | NUR ---
Electronics Specialist/test AM assessment done with [facility] chronic condition nurse on a stick. Held Coreg and Metamucil. Sent down for first part of stress test @ 1015 and back to floor with MD @ bedside with with Electronics Specialist @1042 to explain procedure and answer questions. Dr. Elias states he will be back after test is complete. Pt left floor for completion of test @ 1045. Care conts
--- NOTE | 2016-08-27 12:49 | NUR ---
Return to room Pt arrived via w/ch from [facility]. Vital signs done
--- NOTE | 2016-08-27 14:21 | NUR ---
Hygiene Pt assisted with shower this afternoon. no c/o pain. Did have 1 med size bowel movement. No void. dialysis tues, thurs, sat. Care conts. All care done with diplomatic interpreter on a stick. Care conts
--- NOTE | 2016-08-27 14:42 | DRSVH ---
PROCEDURE: 1 DAY PHARMACOLOGICAL STRESS TEST Rest and pharmacological stress myocardial perfusion SPECT with gated imaging and ejection fraction RADIOPHARMACEUTICAL: 7.8 mCi Tc-99m tetrafosmin IV at rest and 26.1 mCi Tc-99m tetrafosmin IV at pea k effect of pharmacological stress. A [id number] was performed. INDICATIONS: NEW ON SET OF CONGESTIVE HEART FAILURE. POSSIBLY ISCHEMIC. TECHNIQUE: Radiopharmaceutical was injected at peak stress test, and also at rest. SPECT images wer e obtained. SPECT myocardial perfusion images were displayed in short axis, horizontal long axis, an d vertical long axis views. Gated images were reviewed using Get-n-Post software. COMPARISON: None. CARDIAC STRESS: A pharmacologic stress test was performed under the supervision of an attending staff, using an infus ion of lexiscan . Hemodynamic data: There is normal blood pressure and heart rate response to pharmacologic stress. Symptoms: The patient denied anginal chest pain. The patient had dyspnea and nausea Aminophylline: 100mg EKG: The baseline ECG is abnormal showing evolving anterolateral ST changes - at baseline there are still residual ST elevations. No significant changes with stress. FINDINGS: Raw data: There is good myocardial uptake of radiotracer. No significant motion artifacts. Left ventricle function: Gated images demonstrate hypokinesis of the apical anterior/anteroseptal se gment Left ventricle resting end diastolic volume is 89 mL. Left ventricle stress ejection fraction is 60% ; normal range is above 45%. Myocardial perfusion: There is a small area of mild to moderately decreased uptake affecting the api mala anterior/anteroseptal segment that appears mostly fixed on the rest and stress images IMPRESSION: 1. Appropriate hemodynamic response to pharmacologic stress. 2. No chest pain but dyspnea and nausea were reported. Baseline abnormal ECG without significant khadar nges with stress. 3. Scintigraphic evidence for an area of apical anterior/anteroseptal infarct without significant per iinfarct ischemia appreciated. 4. Normal left ventricular size with hypokinesis of the apical anterior/anteroseptal segment and over all preserved systolic function. Dictated by: Comfort Graves M.D. on 08/27/2016 at 14:31 Approved by: Comfort Graves M.D. on 08/27/2016 at 14:40
--- NOTE | 2016-08-27 16:51 | PCM.PNMED ---
Subjective Date of Service Aug 27, 2016 Subjective No major problems noted overnight. No reports of chest pain. Discussed patient with Dr. Rabago who recommends follow up cardiology input. Have paged several time but still have no heard back. Exam Vital Signs Vital Sign - Last Date Time Temp Pulse Resp B/P Pulse Ox O2 Delivery O2 Flow Rate FiO2 08/27/16 12:45 36.8 84 16 159/63 98 Room Air 08/24/16 12:39 2.00 08/21/16 11:10 50 Intake and Output 08/26/16 08/26/16 08/27/16 Cumulative From/Thru 15:00 23:00 07:00 08/21/16 07:15 - 08/27/16 05:32 Intake Total 20 ml 210 ml 2271 ml Output Total 3000 ml 50 ml 46088 ml Balance -3000 ml -30 ml 210 ml -8949 ml Intake Oral 200 ml 2226 ml IV Total 20 ml 10 ml 45 ml Output Urine Total 50 ml 220 ml Ultrafiltrate 3000 ml 73745 ml # Voids 1 5 # Bowel Movements 1 3 Exam Thin female, Skin; warm and dry CV; reg, no murmur, no JVD, no sig edema Resp; decreased a bit, few bibasilar crackles GI, soft non acute benign Lab and Diagnostics Result Diagram: 08/27/16 0615 08/27/16 0615 X-Rays, CTs and MRIs X-RAY CHEST ONE VIEW, PORTABLE IMPRESSION: 1. Limited study demonstrates bilateral pleural effusions with pulmonary edema and bibasilar consolidation which may reflect pneumonia or atelectasis. Dictated by: Minesh Carver M.D. on 08/21/2016 at 11:18 X-RAY CHEST ONE VIEW, PORTABLE IMPRESSION: Multiple areas of abnormality present as discussed above bilaterally , potentially a manifestation of infection or neoplasm. Followup assessment by two-view chest when symptoms have improved would be recommended. Improved pulmonary edema pattern. Both pneumonia and neoplasm remaining possible explanations for the abnormalities noted above. Dictated by: Freddy Zhang M.D. on 08/22/2016 at 9:17 . Assessment & Plan Belle Kevin is a 72-year-old Libyan speaking woman with past medical history significant for end-stage renal disease on hemodialysis Tuesday and Tuesday, hypertension, diabetes, anemia, hyperlipidemia, hypothyroidism presented to [facility] emergency department due to severe shortness of breath and respiratory distress. acute, active probable ACS, poa, improving -TTE 08/21 showed new onset decreased LV function EF35-40%, EKG showed TWI in I, aVR. trop+. as per PCP, pt never had cardiac dz, EKG was NSR. -stress test with apical infarct, possible recent, -continue asa, asa, b-tyrone, -discussed with Dr. Courtney by phone, he will see patient in AM for final recommendations -ekg, troponin in AM Acute CHF secondary to systolic dysfunction, poa, improved -patient diuresed, improved -initial ef was low by echo but on MIBI today it has normalized Acute hypoxemic respiratory failure, poa, resolved -secondary to pulmonary edema secondary to fluid overload in the setting of hypertensive crisis, ESRD, probable ACS with new onset HFrEF. Emergent hemodialysis on 08/21, Possible Lung mass with bilateral pleural effusions, pericardial effusion and history of ascites, POA and stable. Repeat chest CT 08/24 showed bilateral pleural effusion, Rt upper lobe mass, which seemed chronic previously seen in 2012, may be due to scarring. Fluid May be due to fluid overload in conjunction with new onset systolic CHF -Close Out patient follow up of all these issues Diverticulosis, poa, improved -treated 5 days of metronidazole and Bactrim therapy ESRD, stage 5, poa active -on hemodialysis Tuesday. POA and stable. -Continue outpatient medications. Diabetes mellitus type 2, POA and stable. -Hold oral agent. -Initiate insulin if BG greater than 180 Hypertension, POA and stable. - Continue multiple medications Chronic normocytic anemia, poa, stable -Continue to monitor Hypothyroidism, poa, stable CODE STATUS: Full code Disposition: pending due to cardiac w/u daughter in law: [phone] Ifrah, French speaking, primary critical care technician VTE Prophylaxis: Sub-Q Heparin (Unfractionated) VTE Mechanical Devices: Intermittant Pneumatic CD Resuscitation Status: CPR: Attempt Resuscitation Acosta Elias MD Aug 27, 2016 16:51
--- NOTE | 2016-08-27 17:53 | NUR ---
Family update Called Paige and notified her that patient will be staying another night. She reports that she will come in around 0930 08/28 for update from MD. Dr Elias notified. Per MD plan is to have cardiology f/up with her tomorrow, dialysis and potential discharge.
[2016-08-28] VITALS (7 sets, daily range): BP systolic 134–161; BP diastolic 56–64; PULSE 74–82; RESP 14–18; O2SAT 96–97
[2016-08-28] MEDS: Sodium Chloride LOK Flush 10 mL Syringe IVFLUSH SCH ×3 (00:42→16:24)
--- NOTE | 2016-08-28 06:32 | NUR ---
EKG Abnormal EKG noted compared to previous. MD aware and reviewed EKG. No significant changes noted on Tele. Patient denies CP, SOB or any other complaints at this time.
[2016-08-28 07:42] LABS: Mean Corpuscular Hemoglobin 26.9 pg (27.0-35.0); Mean Corpuscular Volume 87.6 fL (81-100)
[2016-08-28] MEDS: Heparin 5,000 Unit/mL Inj SUBQ SCH (08:27)
[2016-08-28] MEDS: Pantoprazole 20 mg ER24 Tablet PO SCH (08:27)
[2016-08-28 09:21] LABS: TROPONIN T 0.097 ug/L (0.0-0.011)
--- NOTE | 2016-08-28 09:48 | PCM.PNNEPH ---
Subjective Date of Service Aug 28, 2016 Subjective Patient offers no complaints. She was examined along with her who acted as department store salesperson. Her blood pressure is good and she denies any chest pain or shortness of breath. Exam Vital Signs Vital Sign - Last Date Time Temp Pulse Resp B/P Pulse Ox O2 Delivery O2 Flow Rate FiO2 08/28/16 08:28 76 08/28/16 05:47 36.9 18 161/56 97 Room Air 08/24/16 12:39 2.00 Intake and Output 08/27/16 08/27/16 08/28/16 Cumulative From/Thru 15:00 23:00 07:00 08/21/16 07:15 - 08/28/16 05:47 Intake Total 120 ml 200 ml 2591 ml Output Total 0 ml 0 ml 48536 ml Balance 120 ml 200 ml -8629 ml Intake Oral 120 ml 200 ml 2546 ml IV Total 45 ml Output Urine Total 0 ml 0 ml 220 ml Ultrafiltrate 62155 ml # Voids 5 # Bowel Movements 1 4 Exam Neck is supple without adenopathy, thyromegaly, or jugular venous distention. Lungs are clear to auscultation. Heart is regular and rhythmical with a soft systolic murmur. Abdomen is soft without any tenderness or rebound guarding masses or hepatosplenomegaly. Extremities 20 evidence of any clubbing, cyanosis , or edema. Good. Lab and Diagnostics Result Diagram: 08/28/1618 08/28/1618 X-Rays, CTs and MRIs X-RAY CHEST ONE VIEW, PORTABLE IMPRESSION: 1. Limited study demonstrates bilateral pleural effusions with pulmonary edema and bibasilar consolidation which may reflect pneumonia or atelectasis. Dictated by: Minesh Carver M.D. on 08/21/2016 at 11:18 X-RAY CHEST ONE VIEW, PORTABLE IMPRESSION: Multiple areas of abnormality present as discussed above bilaterally , potentially a manifestation of infection or neoplasm. Followup assessment by two-view chest when symptoms have improved would be recommended. Improved pulmonary edema pattern. Both pneumonia and neoplasm remaining possible explanations for the abnormalities noted above. Dictated by: Freddy Zhang M.D. on 08/22/2016 at 9:17 . Plan Impression Impression 1 end-stage renal disease dialysis dependent #2 hypertension with hypertensive heart disease and hypertensive nephrosclerosis #3 diabetic nephropathy Recommendations #1 patient dialyzed today on a standard dialyzer for 4 hours, 2 potassium bath, 400 blood flow and 600 dialysate flow, thousand of heparin bolus and 500 per hour attempted to 2 L of fluid off. Following her dialysis treatment she can be discharged from our point of view. Trever Hood DO Aug 28, 2016 09:48
--- NOTE | 2016-08-28 11:37 | NUR ---
Dialysis Pt. transferred to Room 244-1 for dialysis. test tech notified.
--- NOTE | 2016-08-28 12:28 | PCM.PNCARD ---
Subjective Date of service Aug 28, 2016 Chief Complaint confusion History of Present Illness 71 yo W admitted with HTN urgency and severe hypervolemia. Subjective: Patient feels good. Ready to go home. She had here stress test done and wants to know results. PROBLEM LIST: # ESRD on HD # Severe HTN # CAD with nuclear stress test 08/27/2017 showing apical and anteroseptal infarct with no ischeima # Frailty Exam Vital Signs Vital Sign - Last Date Time Temp Pulse Resp B/P Pulse Ox O2 Delivery O2 Flow Rate FiO2 08/28/16 10:29 36.5 78 16 148/64 97 Room Air 08/24/16 12:39 2.00 Intake and Output 08/27/16 08/27/16 08/28/16 Cumulative From/Thru 14:59 22:59 06:59 08/21/16 07:15 - 08/28/16 05:47 Intake Total 120 ml 200 ml 2591 ml Output Total 0 ml 0 ml 28238 ml Balance 120 ml 200 ml -8629 ml Intake Oral 120 ml 200 ml 2546 ml IV Total 45 ml Output Urine Total 0 ml 0 ml 220 ml Ultrafiltrate 89062 ml # Voids 5 # Bowel Movements 1 4 General appearance: No apparent distress, frail, pleasant, cooperative HEET: Normocephalic atraumatic, no scleral icterus, tongue midline, mucous membranes moist Neck: supple Cardiovascular: RRR, no peripheral edema Respiratory: speaking in complete sentences Abdomen: Soft, nontender, nondistended, + bowel sounds Neuro: Alert, no facial droop, tongue midline, no gross motor deficits Lab and Diagnostics Result Diagram: 08/28/16 0718 08/28/16 0718 Assessment & Plan Assessment 71 yo W admitted with HTN urgency and severe hypervolemia: # CAD: Patient was asymptomatic from angina on an electrical standpoint during the entire hospitalization. She did have a mild troponin elevation and reduced ejection fraction and so underwent nuclear stress test on 08/27/2017 that showed apical and anteroseptal infarct with no ischemia. I suspect patient did have a record infarction during this hospitalization due to hypertensive urgency. Her blood pressure is better controlled now and she has had aggressive hemodialysis to treat her severe hypervolemia. She feels good and is able to walk down the hallway per her report. I spent significant time educating the patient and her pvuxxqva-aa-mej about her condition and answered her questions. Given the patient is asymptomatic and has a fixed defect in the LAD territory without significant ischemia, I think it is reasonable to do medical management and avoid invasive angiography. Plan: - Continue aspirin 81mg daily - Continue carvedilol 37.5 mg twice a day - Continue hydralazine 100 mg twice a day - Continue losartan 100 mg daily - Continue amlodipine 10 mg daily - Start rosuvastatin 10mg qhs - No need for coronary angiography at this time given absence of symptoms and no significant ischemia on nuclear stress test - Establish care with outpatient cardiology in [place]. # ESRD on HD: management per nephrology # Severe HTN: as above # Frailty: patient could benefit from outpatient PT/OT Disposition: Patient is ok to discharge from cardiac standpoint. Problems: Pain Evaluation: Pain not Controlled VTE Prophylaxis: Sub-Q Heparin (Unfractionated) VTE Mechanical Devices: Intermittant Pneumatic CD Resuscitation Status: CPR: Attempt Resuscitation Yesenia Courtney MD Aug 28, 2016 12:28
[2016-08-28] MEDS ORDERED: ASPI-973 PO (13:21)
[2016-08-28] MEDS ORDERED: CARV25TA2 PO (13:21)
[2016-08-28] MEDS ORDERED: CREST10T PO (13:21)
--- NOTE | 2016-08-28 13:31 | PCM.DC.MED ---
Discharge Summary Date of Service Dates of Hospitalization Date of Hospital Admission Date of Discharge: Aug 28, 2016 Providers: Consultations Procedures XRay, CTs & MRIs . Brief History Cancel this Note Jada [facility] Hospital Course Exam Vital Signs (Last) Date Time Temp Pulse Resp B/P Pulse Ox O2 Delivery O2 Flow Rate FiO2 08/28/16 11:43 77 08/28/16 10:29 36.5 16 148/64 97 Room Air 08/24/16 12:39 2.00 Exam Test 08/21/16 07:27 08/21/16 08:20 08/23/16 02:50 08/24/16 14:58 Prothrombin Time 12.2sec (8.1-12.5) Prothromb Time International Ratio 1.14ratio D-Dimer 1.68mg/L FEU (<0.50) Hemoglobin A1c 4.8% (4.8-5.6) Lactic Acid Level 1.3mmol/L (0.4-2.0) Pro-B-Type Natriuretic Peptide > 23630aw/mL (0-301) Urine Color Yellow (YELLOW) Urine Appearance Clear (CLEAR,HAZY) Urine pH 8.5 (5.0-8.0) Urine Specific Turrell 1.015 (1.003-1.035) Urine Protein 100mg/dL (NEG,TRACE) Urine Glucose (UA) 100mg/dL (NEGATIVE) Urine Ketones Negativemg/dL (NEGATIVE) Urine Occult Blood Small (NEGATIVE) Urine Nitrite Negative (NEGATIVE) Urine Bilirubin Negative (NEGATIVE) Urine Urobilinogen Normalmg/dL (NORMAL) Urine Leukocyte Esterase Trace (NEGATIVE) Urine RBC 0-2/hpf (0-2) Urine WBC 0-5/hpf (0-5) Urine Epithelial Cells Moderate/hpf (NONE-MOD) Urine Crystals None seen (NONE SEEN) Urine Bacteria Few/hpf (NONE-FEW) Urine Hyaline Casts None/lpf (NONE) Urine Granular Casts None seen (NONE SEEN) Urine Waxy Casts None seen (NONE SEEN) Urine Red Blood Cell Casts None seen (NONE SEEN) Urine White Blood Cell Casts None seen (NONE SEEN) Urine Mucus None seen (None Seen) Urine Trichomonas None seen (NONE SEEN) Urine Yeast None (NONE SEEN) Urinalysis Comment None Urine Culture Reflexed Indicated Test 08/26/16 12:40 08/26/16 17:05 08/27/16 06:15 08/28/16 07:18 Thyroid Stimulating Hormone (TSH) 0.932uIU/mL (0.450-4.500) Hepatitis B Surface Antigen Negative (Negative) Hepatitis C Antibody <0.1s/co ratio (0.0-0.9) HIV (1&2) Ag and Ab, 4th Generation Non reactive (Non Reactive) Neutrophils (%) (Auto) 56.9% (40-74) Lymphocytes (%) (Auto) 25.3% (14-46) Monocytes (%) (Auto) 13.6% (4-12) Eosinophils (%) (Auto) 3.3% (0-5) Basophils (%) (Auto) 0.6% (0-3) Phosphorus Level 3.1mg/dL (2.5-4.9) Magnesium Level 1.9mg/dL (1.6-2.6) Total Bilirubin 0.3mg/dL (0.0-1.2) Aspartate Amino Transf (AST/SGOT) 16U/L (0-50) Alanine Aminotransferase (ALT/SGPT) 8U/L (0-32) Alkaline Phosphatase 57U/L (25-165) Total Protein 7.0g/dL (6.4-8.4) Albumin 3.2g/dL (3.4-5.0) White Blood Count 6.1th/mm3 (3.8-10.1) Red Blood Count 3.79mil/mm3 (3.90-5.20) Hemoglobin 10.2g/dL (12.0-15.6) Hematocrit 33.2% (35.0-46.0) Mean Corpuscular Volume 87.6fL (81-100) Mean Corpuscular Hemoglobin 26.9pg (27.0-35.0) Mean Corpuscular Hemoglobin Concent 30.7% (32.0-37.0) Red Cell Distribution Width 17.4% (12.3-15.4) Platelet Count 168bil/L (150-400) Sodium Level 135mEq/L (134-144) Potassium Level 4.8mEq/L (3.5-5.2) Chloride Level 92mEq/L (97-108) Carbon Dioxide Level 26mmol/L (18-29) Blood Urea Nitrogen 45mg/dL (8-27) Creatinine 6.38mg/dL (0.57-1.00) Estimat Glomerular Filtration Rate 9mL/min (>59) Glucose Level 105mg/dL (60-99) Calcium Level 9.9mg/dL (8.5-10.1) Troponin T 0.097ug/L (0.0-0.011) Procalcitonin 2.25ng/mL (0.00-0.08) Discharge Medications Discharge Medications Amlodipine (Amlodipine) 10 Mg Tablet 10 MG PO DAILY (Reported) Aspirin (Aspirin) 81 Mg Tablet 81 MG PO DAILY Prescribed by: Acosta ELIAS MD Calcium Acetate (Calcium Acetate) 667 Mg Capsule 667 MG PO QID with food ( Reported) Carvedilol (Carvedilol) 25 Mg Tablet 37.5 MG PO BID Prescribed by: Acosta ELIAS MD Furosemide (Lasix) 80 Mg Tablet 80 MG PO DAILY Prescribed by: YOHANNES OCONNOR MD Hydralazine (Hydralazine) 100 Mg Tablet 100 MG PO BIDWM (Reported) Olmesartan (Benicar) 40 Mg Tablet 40 MG PO DAILY (Reported) Rosuvastatin Calcium (Crestor) 10 Mg Tablet 10 MG PO HS Prescribed by: Acosta ELIAS MD As needed Clonidine (Clonidine) 0.2 Mg Tablet 0.2 MG PO BID PRN PRN for BP >170/100 ( Reported) Tramadol (Tramadol) 50 Mg Tablet 50 MG PO Q8 PRN PRN For Pain (Reported) Followup Plan Follow-up plan Please follow up with your primary doctor in 2weeks Discharge Diet: Renal Diet, Other (Please avoid salt to maintain your volume status ) Discharge Activity: No restrictions Patient Instructions You were hospitalized with difficulty of breathing, underwent serial dialysis, which greatly improved your breathing. Please note that you should cut down salt from your diet, be compliant to medicine and dialysis. 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 Please follow up with your primary doctor, especially regarding his findings on CT scan of chest, you may need repeat CT scan or diagnostic intervention. Please note that your were found to have heart failure as well, which could explain your newly developed water in your lungs. Follow-up with PCP in: 1 week Acosta Elias MD Aug 28, 2016 13:31 Test 08/21/16 07:27 08/21/16 08:20 08/23/16 02:50 08/24/16 14:58 Prothrombin Time 12.2sec (8.1-12.5) Prothromb Time International Ratio 1.14ratio D-Dimer 1.68mg/L FEU (<0.50) Hemoglobin A1c 4.8% (4.8-5.6) Lactic Acid Level 1.3mmol/L (0.4-2.0) Pro-B-Type Natriuretic Peptide > 72878wj/mL (0-301) Urine Color Yellow (YELLOW) Urine Appearance Clear (CLEAR,HAZY) Urine pH 8.5 (5.0-8.0) Urine Specific Turrell 1.015 (1.003-1.035) Urine Protein 100mg/dL (NEG,TRACE) Urine Glucose (UA) 100mg/dL (NEGATIVE) Urine Ketones Negativemg/dL (NEGATIVE) Urine Occult Blood Small (NEGATIVE) Urine Nitrite Negative (NEGATIVE) Urine Bilirubin Negative (NEGATIVE) Urine Urobilinogen Normalmg/dL (NORMAL) Urine Leukocyte Esterase Trace (NEGATIVE) Urine RBC 0-2/hpf (0-2) Urine WBC 0-5/hpf (0-5) Urine Epithelial Cells Moderate/hpf (NONE-MOD) Urine Crystals None seen (NONE SEEN) Urine Bacteria Few/hpf (NONE-FEW) Urine Hyaline Casts None/lpf (NONE) Urine Granular Casts None seen (NONE SEEN) Urine Waxy Casts None seen (NONE SEEN) Urine Red Blood Cell Casts None seen (NONE SEEN) Urine White Blood Cell Casts None seen (NONE SEEN) Urine Mucus None seen (None Seen) Urine Trichomonas None seen (NONE SEEN) Urine Yeast None (NONE SEEN) Urinalysis Comment None Urine Culture Reflexed Indicated Test 08/26/16 12:40 08/26/16 17:05 08/27/16 06:15 08/28/16 07:18 Thyroid Stimulating Hormone (TSH) 0.932uIU/mL (0.450-4.500) Hepatitis B Surface Antigen Negative (Negative) Hepatitis C Antibody <0.1s/co ratio (0.0-0.9) HIV (1&2) Ag and Ab, 4th Generation Non reactive (Non Reactive) Neutrophils (%) (Auto) 56.9% (40-74) Lymphocytes (%) (Auto) 25.3% (14-46) Monocytes (%) (Auto) 13.6% (4-12) Eosinophils (%) (Auto) 3.3% (0-5) Basophils (%) (Auto) 0.6% (0-3) Phosphorus Level 3.1mg/dL (2.5-4.9) Magnesium Level 1.9mg/dL (1.6-2.6) Total Bilirubin 0.3mg/dL (0.0-1.2) Aspartate Amino Transf (AST/SGOT) 16U/L (0-50) Alanine Aminotransferase (ALT/SGPT) 8U/L (0-32) Alkaline Phosphatase 57U/L (25-165) Total Protein 7.0g/dL (6.4-8.4) Albumin 3.2g/dL (3.4-5.0) White Blood Count 6.1th/mm3 (3.8-10.1) Red Blood Count 3.79mil/mm3 (3.90-5.20) Hemoglobin 10.2g/dL (12.0-15.6) Hematocrit 33.2% (35.0-46.0) Mean Corpuscular Volume 87.6fL (81-100) Mean Corpuscular Hemoglobin 26.9pg (27.0-35.0) Mean Corpuscular Hemoglobin Concent 30.7% (32.0-37.0) Red Cell Distribution Width 17.4% (12.3-15.4) Platelet Count 168bil/L (150-400) Sodium Level 135mEq/L (134-144) Potassium Level 4.8mEq/L (3.5-5.2) Chloride Level 92mEq/L (97-108) Carbon Dioxide Level 26mmol/L (18-29) Blood Urea Nitrogen 45mg/dL (8-27) Creatinine 6.38mg/dL (0.57-1.00) Estimat Glomerular Filtration Rate 9mL/min (>59) Glucose Level 105mg/dL (60-99) Calcium Level 9.9mg/dL (8.5-10.1) Troponin T 0.097ug/L (0.0-0.011) Procalcitonin 2.25ng/mL (0.00-0.08) Discharge Medications Discharge Medications Amlodipine (Amlodipine) 10 Mg Tablet 10 MG PO DAILY (Reported) Aspirin (Aspirin) 81 Mg Tablet 81 MG PO DAILY Prescribed by: Acosta ELIAS MD Calcium Acetate (Calcium Acetate) 667 Mg Capsule 667 MG PO QID with food ( Reported) Carvedilol (Carvedilol) 25 Mg Tablet 37.5 MG PO BID Prescribed by: Acosta ELIAS MD Furosemide (Lasix) 80 Mg Tablet 80 MG PO DAILY Prescribed by: YOHANNES OCONNOR MD Hydralazine (Hydralazine) 100 Mg Tablet 100 MG PO BIDWM (Reported) Olmesartan (Benicar) 40 Mg Tablet 40 MG PO DAILY (Reported) Rosuvastatin Calcium (Crestor) 10 Mg Tablet 10 MG PO HS Prescribed by: Acosta ELIAS MD As needed Clonidine (Clonidine) 0.2 Mg Tablet 0.2 MG PO BID PRN PRN for BP >170/100 ( Reported) Tramadol (Tramadol) 50 Mg Tablet 50 MG PO Q8 PRN PRN For Pain (Reported) Followup Plan Follow-up plan Please follow up with your primary doctor in 2weeks Discharge Diet: Renal Diet, Other (Please avoid salt to maintain your volume status ) Discharge Activity: No restrictions Patient Instructions You were hospitalized with difficulty of breathing, underwent serial dialysis, which greatly improved your breathing. Please note that you should cut down salt from your diet, be compliant to medicine and dialysis. 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 Please follow up with your primary doctor, especially regarding his findings on CT scan of chest, you may need repeat CT scan or diagnostic intervention. Please note that your were found to have heart failure as well, which could explain your newly developed water in your lungs. Follow-up with PCP in: 1 week Acosta Elias MD Aug 28, 2016 13:31
--- NOTE | 2016-08-28 13:55 | NUR ---
Social Work: Discharge / Multidisciplinary Rounds Data: Pt is on day 7 of hospitalization. EMR reviewed. Pt discussed in rounds. states pt likely ready for discharge pending possible heart cath. Pt will receive dialysis today. D/C orders are in, disposition is home. No d/c planning needs identified at this time. FINANCIAL INVESTIGATOR will continue to follow if needs arise. Assessment: Pt who is independent at baseline. Lives with family. Plan: Pt will d/c home today via POV. No d/c planning needs identified at this time. FINANCIAL INVESTIGATOR will continue to follow if needs arise. LEONARDO Abebe
--- NOTE | 2016-08-28 14:12 | PCM.DC.MED ---
Discharge Summary Date of Service Aug 28, 2016 Dates of Hospitalization Date of Hospital Admission Aug 21, 2016 at 07:55 Date of Discharge: Aug 28, 2016 Providers: Admitting Physician: Bianca Oconnor MD Primary Care Physician: Jessica Attending Physician: Acosta Elias MD Diagnosis at Time of Discharge Diagnosis at Time of Discharge probable ACS, poa, improving Acute CHF secondary to systolic dysfunction, poa, improved Acute hypoxemic respiratory failure, poa, resolved Possible Lung mass with bilateral pleural effusions, pericardial effusion and history of ascites, POA and stable. Diverticulosis, poa, improved ESRD, stage 5, poa active Diabetes mellitus type 2, POA and stable. Hypertension, POA and stable. Chronic normocytic anemia, poa, stable Hypothyroidism, poa, stable Right apical spiculated mass/scar, poa, active,, needs follow up Brest calcifications, poa, active,,, needs follow up Consultations CARDIOLOGY CONSULTATION: DATE OF SERVICE: 08/26/2016 REQUESTING PHYSICIAN/REASON FOR CONSULTATION: Dr. Oconnor has asked that I consult on this 71-year-old Nepalese female with end-stage renal disease, admitted with respiratory distress and an abnormal echocardiogram. HISTORY: The history is obtained through an linoleum floor layer and is somewhat challenging but apparently the patient has never had any known cardiac issues although does have a longstanding history of diabetes, hyperlipidemia, and [id number] hypertension with end-stage renal disease, on chronic dialysis. She was recently seen at the [facility] Emergency Department because of abdominal pain and was felt to have probable diverticulitis with colitis. A chest CT at that time also showed the occurrence of pleural and pericardial effusions, apparently chronic with some improvement since her last exam. She was treated with antibiotics and discharged. However, five days later, she noted the abrupt onset of significant dyspnea. Medics were summoned and found her with oxygen saturations in the 80s with a systolic blood pressure 224/97. She was treated in the emergency department with BiPAP and a chest x-ray was consistent with pulmonary edema. An urgent echocardiogram suggested mild global hypokinesis with an EF of 35%-40% with mild LVH. There may be a small apical area of hypokinesis, but there is a dyssynchronous contraction pattern that makes this challenging. There is mild mitral regurgitation, and on my personal review of the images, I would assess the pericardial effusion is only small without any evidence of tamponade. Large bilateral pleural effusions were noted. Her ECG showed sinus tachycardia 133, with left atrial enlargement and LVH with strain pattern with a probable left anterior fascicular block with poor R-wave progression. She was treated with stat hemodialysis with resolution of her symptoms, although she has continued to have occasional intermittent right upper quadrant pain. She has been felt to have significant volume overload and therefore has undergone repetitive hemodialysis. Her initial troponin was borderline elevated at 0.047 but has not been repeated. She generally has felt better and now states that her breathing is back to normal. She denies any chest discomfort on presentation or during her hospitalization and feels that her breathing is no longer restricted. A chest CT again suggested bilateral pleural effusions with possible spiculated mass versus scarring at the right apex which has been previously noted as well. Her blood pressures here have been moderately elevated at 140-160. She denies any exertional chest discomfort or palpitations. She has had no lightheadedness with the exception of a syncopal episode four years ago at the time of having gallstones. PAST MEDICAL HISTORY: Notable for end-stage renal disease, chronic anemia, and hypothyroidism, although it does not appear that she is on any thyroid replacement medication. She is status post cholecystectomy and appendectomy. MEDICATIONS: Home medications: 1. 10 mg daily. 2. Calcitriol 0.2 mcg daily. 3. Carvedilol 12.5 mg b.i.d. 4. Clonidine 0.1 mg daily. 5. Furosemide 20 mg daily. 6. Hydralazine 25 mg b.i.d. 7. Lovastatin 40 mg daily. 8. CellCept 2 mg every 48 hours. 9. Benicar 40 mg daily. 10. Prilosec 20 mg b.i.d. 11. Prednisone 10 mg daily. 12. Januvia 25 mg daily. 13. Tramadol 50 mg q.8 hours p.r.n. FAMILY HISTORY: Her mother apparently had some type of heart issue but she does not know the details. SOCIAL HISTORY: The patient lives in [place] with her and has dialysis at the [facility]. She denies any alcohol consumption. REVIEW OF SYSTEMS: A complete review is performed and is notable for the gradual loss of weight over the last six months, although she cannot be more specific. She denies a reduced appetite. Denies any fevers or chills. She reports reduced left eye vision but no abrupt visual field cuts. Denies any ENT problems. Denies any hemoptysis. She has not noted any hematochezia although has had some black stools. Denies any hematuria with only minimal urine output on her nondialysis days. Denies any musculoskeletal complaints or neurologic symptoms. PHYSICAL EXAMINATION: Elderly Nepalese female who appears older than her stated age but in no distress, currently on hemodialysis. HR 75, BP has generally been in the 130-160 range. O2 saturation is 95% on room air. She has lost 8 kg since admission. Skin: Warm and dry. HEENT: EOMI without arcus. She has quite poor dentition with multiple missing teeth. Lungs: Slight crackles at both bases more at the right than on the left. CV: Nonpalpable PMI with a regular rhythm with a normal S1 and S2 without any appreciable murmurs or gallops. There is no obvious JVD. Carotid and femoral pulses are 2+ with a brisk upstroke with no bruit. Dorsalis pedis is 2+ bilaterally and posterior tibial pulses are nonpalpable. Abdomen: Soft, nondistended, with mild right upper quadrant tenderness to palpation but no guarding or rebound. There is no palpable liver edge. Normal bowel tones are present without bruits. Extremities: Warm without any clubbing, cyanosis, or edema. Neuro: Moves all four extremities. Psych: Awake, alert, and oriented. LABORATORY DATA: From yesterday showed a sodium of 132 with a potassium of 5.0. Her proBNP was greater than 70,000 on admission. Magnesium was 2.0. White count is 6.7, hematocrit of 36%. IMAGING: Chest CT as above. ECG: Her presenting ECG shows sinus tachycardia with LVH and strain pattern, but no other acute ST-segment abnormalities. Her ECG currently shows sinus rhythm at 72 bpm with fairly deep T-wave inversions in leads V1 through V5. These are new from an ECG from previous. IMPRESSION: 1. Respiratory failure with an abnormal echocardiogram. I suspect that her respiratory failure was predominantly due to her severe hypertension and volume overload which produced her pulmonary edema and now has been corrected with repetitive hemodialysis. Her LV systolic dysfunction may have been a manifestation of her hypertensive crisis and/or a variant of stress related cardiomyopathy. While my suspicion is low for an acute coronary syndrome, her deep T-wave inversions currently are more concerning and I will check troponin. As long as this is not markedly elevated, I would risk stratify her with a vasodilator myocardial perfusion imaging study to assess for ischemia. If this is normal, then I would not pursue any invasive evaluation as I suspect that she is a fairly poor invasive candidate given her multiple comorbidities and would simply continue to try to treat her medically with primary prevention. If her troponin is markedly elevated, then a repeat echocardiogram will be obtained to reassess ventricular function with a decision regarding invasive catheterization based on that result. 2. Hypertension. Currently borderline controlled. She may benefit from advancement of her carvedilol to 37.5 mg b.i.d. 3. Lipid status. Her lipid panel has not been checked. Given her diabetes, her LDL should be less than 100. 4. Right upper quadrant pain. Given reproduction with palpation, this is clearly not an anginal equivalent and most likely reflects underlying colitis as she has been previously documented to have. 5. Diabetes. Per the hospitalist. 6. Hypothyroidism. She is on no thyroid replacement. I would check a TSH. RECOMMENDATIONS: 1. Advance her carvedilol to 37.5 mg b.i.d. 2. Start aspirin 81 mg daily. 3. Check a troponin. As long as this is less than 1.0, I would proceed with a pharmacologic myocardial perfusion stress test in the morning. If this shows no concerning evidence for underlying ischemic heart disease, then I suspect that she can be discharged. If her troponin is greater than 1.0, then I would obtain a repeat limited echocardiogram to reassess left ventricular function. As long as she has not developed any new focal wall motion abnormalities, then I would again proceed with vasodilator pharmacologic stress test; whereas if she had a clear-cut regional wall motion abnormality, invasive evaluation may need to be entertained. Dr. Courtney will be available tomorrow to follow up on the patient as necessary. TIME INVOLVED: I spent 1 hour and 22 minutes reviewing the patient's medical record, interviewing the patient via an linoleum floor layer, examining the patient, and communicating with her other providers. Ibrahima Tellez MD 08/26/16 1253 Subjective Date of service Aug 28, 2016 Chief Complaint confusion History of Present Illness 71 yo W admitted with HTN urgency and severe hypervolemia. Subjective: Patient feels good. Ready to go home. She had here stress test done and wants to know results. PROBLEM LIST: # ESRD on HD # Severe HTN # CAD with nuclear stress test 08/27/2017 showing apical and anteroseptal infarct with no ischeima # Frailty Exam Vital Signs Vital Sign - Last Date Time Temp Pulse Resp B/P Pulse Ox O2 Delivery O2 Flow Rate FiO2 08/28/16 10:29 36.5 78 16 148/64 97 Room Air 08/24/16 12:39 2.00 Intake and Output 08/27/16 08/27/16 08/28/16 Cumulative From/Thru 14:59 22:59 06:59 08/21/16 07:15 - 08/28/16 05:47 Intake Total 120 ml 200 ml 2591 ml Output Total 0 ml 0 ml 84871 ml Balance 120 ml 200 ml -8629 ml Intake Oral 120 ml 200 ml 2546 ml IV Total 45 ml Output Urine Total 0 ml 0 ml 220 ml Ultrafiltrate 00292 ml # Voids 5 # Bowel Movements 1 4 General appearance: No apparent distress, frail, pleasant, cooperative HEET: Normocephalic atraumatic, no scleral icterus, tongue midline, mucous membranes moist Neck: supple Cardiovascular: RRR, no peripheral edema Respiratory: speaking in complete sentences Abdomen: Soft, nontender, nondistended, + bowel sounds Neuro: Alert, no facial droop, tongue midline, no gross motor deficits Lab and Diagnostics Result Diagram: 08/28/1671708/28/16717 Assessment & Plan Assessment 71 yo W admitted with HTN urgency and severe hypervolemia: # CAD: Patient was asymptomatic from angina on an electrical standpoint during the entire hospitalization. She did have a mild troponin elevation and reduced ejection fraction and so underwent nuclear stress test on 08/27/2017 that showed apical and anteroseptal infarct with no ischemia. I suspect patient did have a record infarction during this hospitalization due to hypertensive urgency. Her blood pressure is better controlled now and she has had aggressive hemodialysis to treat her severe hypervolemia. She feels good and is able to walk down the hallway per her report. I spent significant time educating the patient and her [id number] about her condition and answered her questions. Given the patient is asymptomatic and has a fixed defect in the LAD territory without significant ischemia, I think it is reasonable to do medical management and avoid invasive angiography. Plan: - Continue aspirin 81mg daily - Continue carvedilol 37.5 mg twice a day - Continue hydralazine 100 mg twice a day - Continue losartan 100 mg daily - Continue amlodipine 10 mg daily - Start rosuvastatin 10mg qhs - No need for coronary angiography at this time given absence of symptoms and no significant ischemia on nuclear stress test - Establish care with outpatient cardiology in [place]. # ESRD on HD: management per nephrology # Severe HTN: as above # Frailty: patient could benefit from outpatient PT/OT Disposition: Patient is ok to discharge from cardiac standpoint. Problems: Pain Evaluation: Pain not Controlled VTE Prophylaxis: Sub-Q Heparin (Unfractionated) VTE Mechanical Devices: Intermittant Pneumatic CD Resuscitation Status: CPR: Attempt Resuscitation Yesenia Courtney MD Procedures XRay, CTs & MRIs X-RAY CHEST ONE VIEW, PORTABLE IMPRESSION: 1. Limited study demonstrates bilateral pleural effusions with pulmonary edema and bibasilar consolidation which may reflect pneumonia or atelectasis. Dictated by: Minesh Carver M.D. on 08/21/2016 at 11:18 X-RAY CHEST ONE VIEW, PORTABLE IMPRESSION: Multiple areas of abnormality present as discussed above bilaterally , potentially a manifestation of infection or neoplasm. Followup assessment by two-view chest when symptoms have improved would be recommended. Improved pulmonary edema pattern. Both pneumonia and neoplasm remaining possible explanations for the abnormalities noted above. Dictated by: Freddy Zhang M.D. on 08/22/2016 at 9:17 . Cardiac Echo Impression Echocardiogram Report Name: AKASH WILKS Study Date: 08/21/2016 Height: 61 in Hospital Exam Location: [facility] Weight: 11 8 lb Gender: Female BSA: 1.5 m2 : 1945 Age: 71 yrs BP: 156/57 mmHg Reason For Study: Congestive Heart Failure Ordering Physician: HOSPITALIST [facility] Performed By: Sherri Stanford Referring Physician: Armando Herist Interpretation Summary Normal sinus rhythm. Normal LV size, mild concentric LVH. There is apical hypokinesis; otherwise mild global hypokinesis. EF is 35-40%. No significant valvular abnormalities. There is moderate circumferential pericardial effusion with no evidence of tamponade. There are large bilateral pleural effusions. No prior study available for comparison. Procedure: A two-dimensional transthoracic echocardiogram with color flow and Doppler was performed. The study quality was technically adequate. There is no prior echocardiogram noted for this patient. The patient was in normal sinus rhythm during the exam. The heart rate ranged between 87-97 bpm during the study. Left Ventricle: There is mild concentric left ventricular hypertrophy. The left ventricle is normal in size. There is no thrombus. A false chord is noted (normal variant). The ejection fraction is estimated to be 35-40%. apical akinesis; otherwise mild global hypokinesis. Assessment of diastolic parameters indicates a relaxation abnormality of the left ventricle, consistent with normal filling pressures. Right Ventricle: The right ventricle is normal in size and function. Atria: The left atrium is mildly dilated. Right atrial size is normal. There is no Doppler evidence for an interatrial shunt. Mitral Valve: The mitral valve leaflets are slightly calcified. There is mild mitral regurgitation. Aortic Valve: The aortic valve opens well. The aortic valve is mildly calcified. No aortic regurgitation is present. Tricuspid Valve: The tricuspid valve is normal in structure and function. There is mild tricuspid regurgitation. The right ventricular systolic pressure is estimated at 33 mmHg assuming a right atrial pressure of 8 mm Hg. Systolic flow reversal in hepatic veins. Pulmonic Valve: The pulmonic valve is not well visualized. Great Vessels: The aortic root is not well visualized but is probably normal size. The ascending aorta could not be visualized. The IVC is of normal diameter and collapses less than 50% with a sniff. This suggests a right atrial pressure of 8 mm Hg. Pericardium/ Pleura There is a moderate pericardial effusion that is circumferential. There are no echocardiographic or Doppler indications for cardiac tamponade. There are large-sized bilateral pleural effusions noted. MMode/2D Measurements & Calculations LVIDd: 4.5 cm RA long axis: 3.8 cm LVOT diam LVIDs: 3.0 cm LA A2 area: 20.0 cm : 1.9 cm FS: 33.4 % LA A4 area: 17.0 cm RA area: 12.5 cm EPSS: 0.66 cm LA length (vol): 4.7 cm RA vol: 35.2 ml IVSd: 1.1 cm LA vol: 61.0 ml RA : 23.3 ml/m2 LVPWd: 1.2 cm LA vol index: 40.4 ml/m IVC diam: 2.0 cm EDV(MOD-sp2) LV luna. diameter/BSA LV sys. diameter/BSA RVD1 (basal) (cm/m^2): 3.0 (cm/m^2): 2.0 : 3.5 cm ESV(MOD-sp2) EF(MOD-sp2) TAPSE: 1.7 cm Doppler Measurements & Calculations Ao V2 max MV E max kody MV E/A: 0.55 TR max kody : 143.1 cm/sec : 47.8 cm/sec Med Peak E' Kody : 249.5 cm/sec Ao max PG MV A max kody TR max PG : 8.2 mmHg : 87.6 cm/sec E/E' med: 16.8 : 24.9 mmHg Ao mean PG MV P1/2t: 46.0 msec Lat Peak E' Kody PA V2 max : 78.7 cm/sec LVOT Max Kody E/E' lat: 8.3 PA mean PG : 76.6 cm/sec E/e' average PA Accel Time RUBY(I,D): 1.6 cm : 0.12 sec sev ratio MV dec time MV P1/2t max kody Ao V2 mean LV V1 max PG : 0.15 sec : 88.1 cm/sec MVA(P1/2t): 4.8 cm2 Ao V2 VTI: 25.5 cm LV V1 VTI RUBY(V,D): 1.6 cm2 : 13.6 cm PA V2 mean RUBY indexed to BSA : 51.7 cm/sec (cm^2/m^2): 1.1 Brief History 71 yo W admitted with HTN urgency and severe hypervolemia. Hospital Course Akash Wilks is a 72-year-old Nepalese speaking woman with past medical history significant for end-stage renal disease on hemodialysis Tuesday and Tuesday, hypertension, diabetes, anemia, hyperlipidemia, hypothyroidism presented to [facility] emergency department due to severe shortness of breath and respiratory distress. acute, active probable ACS, poa, resolved -TTE 08/21 showed new onset decreased LV function EF35-40%, EKG showed TWI in I, aVR. trop+. as per PCP, pt never had cardiac dz, EKG was NSR. -stress test with apical infarct, possible recent, improved/normalized EF -discussed with Dr. Courtney today, OK to go home -Discharge patient home; establish with and follow up with lab nurse in [place], discussed with daughter who will arrange this. Acute CHF secondary to systolic dysfunction, poa, resolved -patient diuresed, improved -initial EF was low by echo but on MIBI today it has normalized -discharge home, establish and follow up with lab nurse in [place] Acute hypoxemic respiratory failure, poa, resolved -secondary to pulmonary edema secondary to fluid overload in the setting of hypertensive crisis, ESRD, probable ACS with new onset HFrEF. Emergent hemodialysis on 08/21, Possible Lung mass with bilateral pleural effusions, pericardial effusion and history of ascites, POA and stable. -Repeat chest CT 08/24 showed bilateral pleural effusion, possible Rt upper lobe mass, which seemed chronic previously seen in 2012, may be due to scarring. Fluid May be due to fluid overload in conjunction with new onset systolic CHF -Close Out patient follow up of all these issues Diverticulosis, poa, improved -treated 5 days of metronidazole and Bactrim therapy ESRD, stage 5, poa active -on hemodialysis Tuesday. POA and stable. -Continue outpatient medications. Diabetes mellitus type 2, POA and stable. -continue regular home medications Hypertension, POA and stable. - Continue medictions Chronic normocytic anemia, poa, stable -Continue to monitor Hypothyroidism, poa, stable Right apical spiculated mass/scar, poa, active,, needs follow up -seen on CT scan 08/24/16 Brest calcifications, poa, active,,, needs follow up -seen on Ct 08/24/16 Med Reconciliation; -because there was confusion about patient medications brought in all patient's home medications which I have reviewed and added to the new cardiac medications to come up with the typewritten list of discharge medications. CODE STATUS: Full code Disposition: pending due to cardiac w/u daughter in law: [phone] Ifrah, Austrian speaking, primary home day care provider Exam Vital Signs (Last) Date Time Temp Pulse Resp B/P Pulse Ox O2 Delivery O2 Flow Rate FiO2 08/28/16 11:43 77 08/28/16 10:29 36.5 16 148/64 97 Room Air 08/24/16 12:39 2.00 Exam Alert and comfortable HENT; adequate hydration CV'; no murmur, no gallop, no edema Resp; few bibasilar crackles Test 08/21/16 07:27 08/21/16 08:20 08/23/16 02:50 08/24/16 14:58 Prothrombin Time 12.2sec (8.1-12.5) Prothromb Time International Ratio 1.14ratio D-Dimer 1.68mg/L FEU (<0.50) Hemoglobin A1c 4.8% (4.8-5.6) Lactic Acid Level 1.3mmol/L (0.4-2.0) Pro-B-Type Natriuretic Peptide > 44767jx/mL (0-301) Urine Color Yellow (YELLOW) Urine Appearance Clear (CLEAR,HAZY) Urine pH 8.5 (5.0-8.0) Urine Specific [place] 1.015 (1.003-1.035) Urine Protein 100mg/dL (NEG,TRACE) Urine Glucose (UA) 100mg/dL (NEGATIVE) Urine Ketones Negativemg/dL (NEGATIVE) Urine Occult Blood Small (NEGATIVE) Urine Nitrite Negative (NEGATIVE) Urine Bilirubin Negative (NEGATIVE) Urine Urobilinogen Normalmg/dL (NORMAL) Urine Leukocyte Esterase Trace (NEGATIVE) Urine RBC 0-2/hpf (0-2) Urine WBC 0-5/hpf (0-5) Urine Epithelial Cells Moderate/hpf (NONE-MOD) Urine Crystals None seen (NONE SEEN) Urine Bacteria Few/hpf (NONE-FEW) Urine Hyaline Casts None/lpf (NONE) Urine Granular Casts None seen (NONE SEEN) Urine Waxy Casts None seen (NONE SEEN) Urine Red Blood Cell Casts None seen (NONE SEEN) Urine White Blood Cell Casts None seen (NONE SEEN) Urine Mucus None seen (None Seen) Urine Trichomonas None seen (NONE SEEN) Urine Yeast None (NONE SEEN) Urinalysis Comment None Urine Culture Reflexed Indicated Test 08/26/16 12:40 08/26/16 17:05 08/27/16 06:15 08/28/16 07:18 Thyroid Stimulating Hormone (TSH) 0.932uIU/mL (0.450-4.500) Hepatitis B Surface Antigen Negative (Negative) Hepatitis C Antibody <0.1s/co ratio (0.0-0.9) HIV (1&2) Ag and Ab, 4th Generation Non reactive (Non Reactive) Neutrophils (%) (Auto) 56.9% (40-74) Lymphocytes (%) (Auto) 25.3% (14-46) Monocytes (%) (Auto) 13.6% (4-12) Eosinophils (%) (Auto) 3.3% (0-5) Basophils (%) (Auto) 0.6% (0-3) Phosphorus Level 3.1mg/dL (2.5-4.9) Magnesium Level 1.9mg/dL (1.6-2.6) Total Bilirubin 0.3mg/dL (0.0-1.2) Aspartate Amino Transf (AST/SGOT) 16U/L (0-50) Alanine Aminotransferase (ALT/SGPT) 8U/L (0-32) Alkaline Phosphatase 57U/L (25-165) Total Protein 7.0g/dL (6.4-8.4) Albumin 3.2g/dL (3.4-5.0) White Blood Count 6.1th/mm3 (3.8-10.1) Red Blood Count 3.79mil/mm3 (3.90-5.20) Hemoglobin 10.2g/dL (12.0-15.6) Hematocrit 33.2% (35.0-46.0) Mean Corpuscular Volume 87.6fL (81-100) Mean Corpuscular Hemoglobin 26.9pg (27.0-35.0) Mean Corpuscular Hemoglobin Concent 30.7% (32.0-37.0) Red Cell Distribution Width 17.4% (12.3-15.4) Platelet Count 168bil/L (150-400) Sodium Level 135mEq/L (134-144) Potassium Level 4.8mEq/L (3.5-5.2) Chloride Level 92mEq/L (97-108) Carbon Dioxide Level 26mmol/L (18-29) Blood Urea Nitrogen 45mg/dL (8-27) Creatinine 6.38mg/dL (0.57-1.00) Estimat Glomerular Filtration Rate 9mL/min (>59) Glucose Level 105mg/dL (60-99) Calcium Level 9.9mg/dL (8.5-10.1) Troponin T 0.097ug/L (0.0-0.011) Procalcitonin 2.25ng/mL (0.00-0.08) Discharge Medications Discharge Medications Amlodipine (Amlodipine) 10 Mg Tablet 10 MG PO DAILY (Reported) Aspirin (Aspirin) 81 Mg Tablet 81 MG PO DAILY Prescribed by: Acosta ELIAS MD Calcium Acetate (Calcium Acetate) 667 Mg Capsule 667 MG PO QID with food ( Reported) Carvedilol (Carvedilol) 25 Mg Tablet 37.5 MG PO BID Prescribed by: Acosta ELIAS MD Furosemide (Lasix) 80 Mg Tablet 80 MG PO DAILY Prescribed by: BIANCA OCONNOR MD Hydralazine (Hydralazine) 100 Mg Tablet 100 MG PO BIDWM (Reported) Olmesartan (Benicar) 40 Mg Tablet 40 MG PO DAILY (Reported) Rosuvastatin Calcium (Crestor) 10 Mg Tablet 10 MG PO HS Prescribed by: Acosta LEIAS MD As needed Clonidine (Clonidine) 0.2 Mg Tablet 0.2 MG PO BID PRN PRN for BP >170/100 ( Reported) Tramadol (Tramadol) 50 Mg Tablet 50 MG PO Q8 PRN PRN For Pain (Reported) Additional med instructions DISCARGE MEDICATION FOR PATIENT TO TAKE: New Medications: 1- Asprin 81 mg daily 2- Lasix 20 mg daily 3- Crestor 10 mg daily Continue Following Medications 1- Coreg 37.5 mg daily 2- Amlodipine 10 mg daily 3- Hydralazine 100 mg twice a day 4- Benicar (olmersa) 40 mg daily 5- Prilosec 20 mg daily 6- Clonidine 0.1 mg ever 8 hours as needed for systolic blood pressure > 180 7- Calcium acetate 4 time a day Please take this list to your doctor to review and make changes or additions as needed. Followup Plan Follow-up plan Also please set up and appointment with a lab nurse in [place] to follow heart problems. Have your primary care provider request a copy of the "discharge summary" for his records and to help see the issues need follow up and why Discharge Diet: Renal Diet, Other (Please avoid salt to maintain your volume status ) Discharge Activity: No restrictions Patient Instructions You were hospitalized with difficulty of breathing, underwent serial dialysis, which greatly improved your breathing. Please note that you should cut down salt from your diet, be compliant to medicine and dialysis. 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 Please follow up with your primary doctor, especially regarding his findings on CT scan of chest, you may need repeat CT scan or diagnostic intervention. Please note that your were found to have heart failure as well, which could explain your newly developed water in your lungs. Follow-up with PCP in: 1 week Time spent 50 minutes time spent discharging patient home so far today,, current time is 2: 39 PM. Acosta Elias MD Aug 28, 2016 14:12
--- NOTE | 2016-08-28 16:15 | NUR ---
Dialysis note: 4 hrs tx 2000 ml net UF MARV fistula, accessed w/ no problems Pls see DTR for VS details Qb 400 Heparin given O2 @ 2L via NC on during tx Tolerated tx, slept at intervals Fistula needle sites clotted w/in 10 min Stable condition at end of tx Report given to Dai COTTER
--- NOTE | 2016-08-28 18:31 | NUR ---
Discharge Pt. discharged to home with belongings via POV with . Alert and oriented x 3, vitals stable, denied pain/discomfort, agreeable with discharge. Discharge completed with assistance of [place] historic interpreter. Discharge packet with discharge, follow-up, medication instructions and hard copy of prescriptions explained to and sent with pt and . Pt. home medications also by "continue taking" and "stop taking". Pt. and expressed understanding of discharge and medication instructions. Pt. left unit via wheelchair with and member of [facility] [place] staff.
== END 2016-08-28 18:17 | disposition home or self-care (01) | DRG 291 ==
LOC: EDAGE 06:49 → EDBD 06:49 → SED 06:49 → PCC 07:55 → CCU 08:25 → PCC 12:05 → MOC 08-24 12:20
PROVIDERS: ADMIT Internal Medicine; ATTEND Internal Medicine
PROC: 5A1D60Z (ICD-10-PCS; principal; 2016-08-22)
DX: I50.21 Acute systolic (congestive) heart failure (principal); J96.01 Acute respiratory failure with hypoxia; I16.1 Hypertensive emergency; I12.0 Hypertensive chronic kidney disease with stage 5 chronic kidney disease or end stage renal disease; N18.5 Chronic kidney disease, stage 5; E78.5 Hyperlipidemia, unspecified; E03.9 Hypothyroidism, unspecified; D63.1 Anemia in chronic kidney disease; Z99.2 Dependence on renal dialysis; R10.11 Right upper quadrant pain; K57.90 Diverticulosis of intestine, part unspecified, without perforation or abscess without bleeding; E11.21 Type 2 diabetes mellitus with diabetic nephropathy